=== PATIENT | female | born 1960 | race African-American/Black ===

== ENCOUNTER 2017-03-21 08:08 | Emergency (ER) | payer MEDICARE, MEDICAID ==
--- NOTE | 2017-03-21 08:42 | RADIOLOGY REPORT (SQ) ---
EXAM DESCRIPTION: CT HEAD WITHOUT COMPLETED DATE/TIME: 03/21/2017 8:28 am REASON FOR STUDY: bed 10 stroke alert COMPARISON: 06/01/2015. TECHNIQUE: Axial images acquired through the brain without intravenous contrast. Images reviewed wi th bone, brain and subdural windows. Images stored on PACS. All CT scanners at this facility use dose modulation, iterative reconstruction, and/or weight based d osing when appropriate to reduce radiation dose to as low as reasonably achievable (ALARA). [facility]: Dose Right [facility]: CareDose [facility]: Dose Right [facility]: Teradose 4D [facility]: Smart [employer] RADIATION DOSE: Up-to-date CT equipment and radiation dose reduction techniques were employed. CTDIv ol: 64.6 mGy. DLP: 1163 mGy-cm. mGy. LIMITATIONS: None. FINDINGS: VENTRICLES: Normal size and contour. CEREBRUM: No masses. No hemorrhage. No midline shift. Normal parson/white matter differentiation. N o evidence for acute infarction. CEREBELLUM: No masses. No hemorrhage. No alteration of density. No evidence for acute infarction. EXTRAAXIAL SPACES: No fluid collections. No masses. ORBITS AND GLOBE: No intra- or extraconal masses. Normal contour of globe without masses. CALVARIUM: No fracture. PARANASAL SINUSES: No fluid or mucosal thickening. SOFT TISSUES: No mass or hematoma. OTHER: No other significant finding. IMPRESSION: NORMAL BRAIN CT WITHOUT CONTRAST. COMMENT: Pertinent positive or negative findings of the imaging study reported as a CRITICAL EXAM t o ER PROVIDER at08:35 on 03/21/2017. Category of Critical Exam: Stroke protocol. TECHNICAL DOCUMENTATION: JOB ID: [id number] Quality ID # [id number]: Final reports with documentation of one or more dose reduction techniques (e.g., Au tomated exposure control, adjustment of the mA and/or kV according to patient size, use of iterative reconstruction technique) 2010 [employer]- All Rights Reserved
--- NOTE | 2017-03-21 08:49 | RADIOLOGY REPORT (SQ) ---
EXAM DESCRIPTION: CHEST SINGLE VIEW COMPLETED DATE/TIME: 03/21/2017 8:24 am REASON FOR STUDY: bed 10 stroke alert COMPARISON: 07/30/2016. EXAM PARAMETERS: NUMBER OF VIEWS: One view. TECHNIQUE: Single frontal radiographic view of the chest acquired. RADIATION DOSE: NA LIMITATIONS: None. FINDINGS: LUNGS AND PLEURA: No opacities, masses or pneumothorax. No pleural effusion. MEDIASTINUM AND HILAR STRUCTURES: No masses. Contour normal. HEART AND VASCULAR STRUCTURES: Heart normal in size. Normal vasculature. BONES: No acute findings. HARDWARE: None in the chest. OTHER: No other significant finding. IMPRESSION: NO ACUTE RADIOGRAPHIC FINDING IN THE CHEST. TECHNICAL DOCUMENTATION: JOB ID: [id number]
[2017-03-21 08:55] LABS: ABSOLUTE EOSINOPHILS # (AUTO) 0.1 10^3/uL (0.0-0.6); ABSOLUTE LYMPHOCYTES (AUTO) 0.9 10^3/uL (0.5-4.7); ABSOLUTE MONOCYTES (AUTO) 0.3 10^3/uL (0.1-1.4); ABSOLUTE NEUT (AUTO) 2.1 10^3/uL (1.7-8.2); BASOPHILS % (AUTO) 1.2 % (0-2); EOSINOPHILS % (AUTO) 2.3 % (0-6); HEMATOCRIT 39.4 % (36.0-47.0); HGB HCT DIFFERENCE -0.4; LYMPHOCYTES % (AUTO) 27.3 % (13-45); MEAN CORPUSCULAR HEMOGLOBIN 30.3 pg (27.0-33.4); MEAN CORPUSCULAR HGB CONC 33.1 g/dL (32.0-36.0); MEAN CORPUSCULAR VOLUME 92 fl (80-97); SEGMENTED NEUTROPHILS % (AUTO) 61.2 % (42-78); WHITE BLOOD COUNT 3.4 10^3/uL (4.0-10.5)
[2017-03-21 09:00] LABS: PARTIAL THROMBOPLASTIN TIME 24.9 SEC (23.5-35.8); PROTHROMBIN TIME 12.8 SEC (11.4-15.4)
[2017-03-21 09:11] LABS: ALANINE AMINOTRANSFERASE 20 U/L (9-52); ALBUMIN 3.6 g/dL (3.5-5.0); ALKALINE PHOSPHATASE 67 U/L (38-126); ANION GAP 11 (5-19); ASPARTATE AMINO TRANSFERASE 21 U/L (14-36); BILIRUBIN,DIRECT 0.3 mg/dL (0.0-0.4); BILIRUBIN,TOTAL 0.6 mg/dL (0.2-1.3); BLOOD UREA NITROGEN 15 mg/dL (7-20); CALCIUM 9.1 mg/dL (8.4-10.2); CARBON DIOXIDE 20 mmol/L (22-30); CHLORIDE 108 mmol/L (98-107); CREATINE KINASE 119 U/L (30-135); CREATININE RESULT 0.99 mg/dL (0.52-1.25); GLUCOSE 131 mg/dL (75-110); POTASSIUM 3.9 mmol/L (3.6-5.0); SODIUM 139.3 mmol/L (137-145); TOTAL PROTEIN 6.6 g/dL (6.3-8.2)
--- NOTE | 2017-03-21 09:11 | ER Document Report ---
ED General - General Chief Complaint: Numbness of Arm Stated Complaint: NUMBNESS/WEAKNESS Time Seen by Provider: 03/21/17 08:51 Mode of Arrival: Medic Information source: Patient TRAVEL OUTSIDE OF THE [place] IN LAST 30 DAYS: No - HPI Notes: Patient is a 56-year-old with history of lupus, seizures, hypertension, ITP, TTP presents to the emergency department with report that since 1 AM this morning she has had mild expressive aphasia, with right sided weakness and numbness extending from the face down to the right arm and right leg. No previous history of stroke in the past. Patient reports no shortness of breath or chest pain. No recent medication changes. - Related Data Allergies/Adverse Reactions: bee venom protein (honey bee) Allergy (Severe, Verified 03/21/17 12:44) brompheniramine maleate [From Lodrane] Allergy (Severe, Verified 07/30/16 16:28) homatropine [Homatropine] Allergy (Severe, Verified 07/30/16 16:28) hydrocodone [Hydrocodone] Allergy (Severe, Verified 07/30/16 16:28) ketorolac tromethamine [From Toradol] Allergy (Severe, Verified 07/30/16 16:28) phenytoin sodium [From Dilantin] Allergy (Severe, Verified 07/30/16 16:28) pseudoephedrine HCl [From Lodrane] Allergy (Severe, Verified 07/30/16 16:28) Sulfa (Sulfonamide Antibiotics) Allergy (Severe, Verified 07/30/16 16:28) trimethoprim [From Septra] Allergy (Severe, Verified 07/30/16 16:28) ant bites Allergy (Severe, Uncoded 07/30/16 16:28) Past Medical History - General Information source: Patient - Social History Smoking Status: Never Smoker Frequency of alcohol use: None Drug Abuse: None Lives with: Family Family History: Reviewed & Not Pertinent - Past Medical History Cardiac Medical History: Reports: Hx Hypercholesterolemia Pulmonary Medical History: Reports: Hx Asthma Neurological Medical History: Reports: Hx Seizures GI Medical History: Reports: Hx Gastroesophageal Reflux Disease Musculoskeltal Medical History: Reports Hx Arthritis - + CARPAL TUNNEL, Reports Hx Fibromyalgia Psychiatric Medical History: Reports: Hx Depression Past Surgical History: Reports: Hx Abdominal Surgery - COLON BIOPSY, Hx Breast Surgery - BIOPSY, Hx Cardiac Catheterization, Hx Gynecologic Surgery - ENDOMETRIOSIS, Hx Hysterectomy, Hx Kidney (Renal Surgery) - Immunizations Immunizations up to date: Yes Hx Diphtheria, Pertussis, Tetanus Vaccination: No - LAST 2009 Hx Pneumococcal Vaccination: 07/13/12 Review of Systems - Review of Systems Notes: REVIEW OF SYSTEMS: CONSTITUTIONAL : Denies fever, chills, or sweats. Denies recent illness. EENT: Denies eye, ear, throat, or mouth pain or symptoms. Denies nasal or sinus congestion or discharge. Denies throat, tongue, or mouth swelling or difficulty swallowing. CARDIOVASCULAR: Denies chest pain. Denies palpitations or racing or irregular heart beat. Denies ankle edema. RESPIRATORY: Denies cough, cold, or chest congestion. Denies shortness of breath, difficulty breathing, or wheezing. GASTROINTESTINAL: Denies abdominal pain or distention. Denies nausea, vomiting , or diarrhea. Denies blood in vomitus, stools, or per rectum. Denies black, tarry stools. Denies constipation. GENITOURINARY: Denies difficulty urinating, painful urination, burning, frequency, blood in urine, or discharge. FEMALE GENITOURINARY: Denies vaginal bleeding, heavy or abnormal periods, irregular periods. Denies vaginal discharge or odor. MUSCULOSKELETAL: Denies back or neck pain or stiffness. Denies joint pain or swelling. SKIN: Denies rash, lesions or sores. HEMATOLOGIC : Denies easy bruising or bleeding. LYMPHATIC: Denies swollen, enlarged glands. NEUROLOGICAL: Denies confusion or altered mental status. Denies passing out or loss of consciousness. Denies dizziness or lightheadedness. Denies headache. Denies seizures. patient reports associated difficulty ambulating. PSYCHIATRIC: Denies anxiety or stress. Denies depression, suicidal ideation, or homicidal ideation. ALL OTHER SYSTEMS REVIEWED AND NEGATIVE. Dictation was performed using [email or web address] voice recognition software Physical Exam - Vital signs Vitals: Pulse Ox 98 03/21/17 08:15 - Notes Notes: PHYSICAL EXAMINATION: GENERAL: Well-appearing, well-nourished and in no acute distress. HEAD: Atraumatic, normocephalic. EYES: Pupils equal round and reactive to light, extraocular movements intact, conjunctiva are normal. ENT: Nares patent, oropharynx clear without exudates. Moist mucous membranes. NECK: Normal range of motion, supple without lymphadenopathy LUNGS: Breath sounds clear to auscultation bilaterally and equal. No wheezes rales or rhonchi. HEART: Regular rate and rhythm without murmurs ABDOMEN: Soft, nontender, nondistended abdomen. No guarding, no rebound. No masses appreciated. Female : deferred Musculoskeletal: Normal range of motion, no pitting or edema. No cyanosis. NEUROLOGICAL: Very mild expressive aphasia noted. Patient has subjective numbness right face arm and leg. Normal reflexes noted. Motor strength 4- / 5 right upper extremity. Motor strength 4/5 RLE. Patient is alert and oriented 3. No cerebellar ataxia. PSYCH: Normal mood, normal affect. SKIN: Warm, Dry, normal turgor, no rashes or lesions noted. Course - Re-evaluation Re-evalutation: 03/21/17 13:34 CT scan negative for acute change. There were normal vital signs and lab studies showed no significant abnormality. There is no thrombocytopenia noted. No change noted on repeat neuro exam. Patient was clearly beyond in the thrombolytic window given the onset of symptoms at 1 AM. Discussion was undertaken with the patient and she was in agreement with transfer for further evaluation and care to a [facility] patient where there was availability of inpatient neurology services and evaluation and potential neurosurgical interventional services as needed. Discussion was undertaken with Dr. Holley who accepted the patient in transfer to [facility]. He advised giving the patient aspirin, and with holding heparin or other lytic therapy. Patient is unable to take aspirin related to it causing her ITP and TTP in the past. 03/21/17 13:39 - Vital Signs Vital signs: Temp Pulse Resp BP Pulse Ox 64 18 154/87 H 99 03/21/17 09:00 03/21/17 09:00 03/21/17 09:00 03/21/17 09:00 - Laboratory Result Diagrams: 03/21/17 08:45 03/21/17 08:45 Laboratory results interpreted by me: 03/21/17 03/21/17 03/21/17 08:45 08:45 10:40 WBC 3.4 L Chloride 108 H Carbon Dioxide 20 L Est GFR (Non-Af Amer) 58 L Glucose 131 H Urine Protein 100 H - EKG Interpretation by Me EKG shows normal: Sinus rhythm Additional EKG results interpreted by me: 03/21/17 09:14 EKG as interpreted by me showed normal sinus rhythm heart rate of 68. There is no gross evidence for acute VT or ischemia identified. There was no change from previous EKG reviewed in the old record from 07/30/16. Critical Care Note - Critical Care Note Total time excluding time spent on procedures (mins): 37 Discharge - Discharge Clinical Impression: CVA (cerebral vascular accident) Qualifiers: CVA mechanism: unspecified Qualified Code(s): I63.9 - Cerebral infarction, unspecified Condition: Stable Disposition: [place]
[2017-03-21 09:22] LABS: CREATINE KINASE MB 1.25 ng/mL (<4.55)
[2017-03-21 09:31] LABS: TROPONIN I < 0.012 ng/mL
[2017-03-21 10:51] LABS: APPEARANCE,URINE CLEAR; BILIRUBIN,URINE NEGATIVE (NEGATIVE); GLUCOSE, URINE NEGATIVE (NEGATIVE); KETONES,URINE NEGATIVE (NEGATIVE); LEUKOCYTE ESTERASE,URINE NEGATIVE (NEGATIVE); NITRITE,URINE NEGATIVE (NEGATIVE); PROTEIN,URINE 100 mg/dL (NEGATIVE); URINE SPECIFIC GRAVITY 1.009; UROBILINOGEN,URINE NEGATIVE mg/dL (<2.0)
[2017-03-21] MEDS ORDERED: HEPARIN SOD (PORCINE) 1,000 UNIT/ML 10 ML VIAL IV ONE (12:28)
--- NOTE | 2017-03-21 13:04 | EKG REPORT ---
SEVERITY:- NORMAL ECG - SINUS RHYTHM : Confirmed by: Donavan Vásquez MD 21-Mar-2017 13:04:24
[2017-03-21 20:02] VITALS: BP 167/90
== END 2017-03-21 19:50 | disposition short-term general hospital (02) ==
LOC: ER 08:08
DX: I63.9 Cerebral infarction, unspecified (principal); R53.1 Weakness; I10 Essential (primary) hypertension; R20.0 Anesthesia of skin
CPT/HCPCS: 36415; 70450; 71010; 80053; 81001; 82550; 82553; 84484; 85025; 85610; 85730; 93005; 93010; 99291

== ENCOUNTER 2017-05-14 17:39 | Emergency (ER) | payer MEDICARE, MEDICAID ==
--- NOTE | 2017-05-14 19:34 | RADIOLOGY REPORT (SQ) ---
EXAM DESCRIPTION: CT HEAD WITHOUT COMPLETED DATE/TIME: 05/14/2017 7:15 pm REASON FOR STUDY: right sided deficit from cva in march COMPARISON: 03/21/2017. TECHNIQUE: Axial images acquired through the brain without intravenous contrast. Images reviewed wi th bone, brain and subdural windows. Images stored on PACS. All CT scanners at this facility use dose modulation, iterative reconstruction, and/or weight based d osing when appropriate to reduce radiation dose to as low as reasonably achievable (ALARA). [facility]: Dose Right [facility]: CareDose [facility]: Dose Right [facility]: Teradose 4D [facility]: Smart [employer] RADIATION DOSE: Up-to-date CT equipment and radiation dose reduction techniques were employed. CTDIv ol: 64.6 mGy. DLP: 1163 mGy-cm. mGy. LIMITATIONS: None. FINDINGS: VENTRICLES: Normal size and contour. CEREBRUM: No masses. No hemorrhage. No midline shift. No evidence for acute infarction. Generally normal parson-white matter differentiation. When compared to the study from March, there is a new well- defined low density lacunar infarct along the left thalamus. CEREBELLUM: No masses. No hemorrhage. No alteration of density. No evidence for acute infarction. EXTRAAXIAL SPACES: No fluid collections. No masses. ORBITS AND GLOBE: No intra- or extraconal masses. Normal contour of globe without masses. CALVARIUM: No fracture. PARANASAL SINUSES: No fluid or mucosal thickening. SOFT TISSUES: No mass or hematoma. OTHER: No other significant finding. IMPRESSION: 1. New but otherwise chronic appearing small left thalamic infarct has developed since . COMMENT: Quality ID # [id number]: Final reports with documentation of one or more dose reduction techniques (e.g., Automated exposure control, adjustment of the mA and/or kV according to patient size, use of iterative reconstruction technique) TECHNICAL DOCUMENTATION: JOB ID: [id number] [employer]- All Rights Reserved
--- NOTE | 2017-05-14 19:36 | ER Document Report ---
ED General - General Chief Complaint: Weakness Stated Complaint: NUMBNESS Time Seen by Provider: 05/14/17 18:52 Mode of Arrival: Ambulatory Information source: Patient Notes: 56-year-old female who had a ischemic CVA of the left thalamus in March and was at [facility] presents with complaints of continued numbness and weakness. Patient states she was under the impression that her symptoms would have resolved by now denies any worsening weakness but admits to worsening numbness which has been gradual over the past few weeks TRAVEL OUTSIDE OF THE [place] IN LAST 30 DAYS: No - HPI Onset: Other Onset/Duration: Persistent, Worse Quality of pain: No pain Severity: Mild Pain Level: Denies Associated symptoms: Weakness Exacerbated by: Denies Relieved by: Denies Similar symptoms previously: Yes Recently seen / treated by doctor: Yes - Related Data Allergies/Adverse Reactions: bee venom protein (honey bee) Allergy (Severe, Verified 05/14/17 18:50) brompheniramine maleate [From Lodrane] Allergy (Severe, Verified 05/14/17 18:50) homatropine [Homatropine] Allergy (Severe, Verified 05/14/17 18:50) hydrocodone [Hydrocodone] Allergy (Severe, Verified 05/14/17 18:50) ketorolac tromethamine [From Toradol] Allergy (Severe, Verified 05/14/17 18:50) phenytoin sodium [From Dilantin] Allergy (Severe, Verified 05/14/17 18:50) pseudoephedrine HCl [From Lodrane] Allergy (Severe, Verified 05/14/17 18:50) Sulfa (Sulfonamide Antibiotics) Allergy (Severe, Verified 05/14/17 18:50) trimethoprim [From Septra] Allergy (Severe, Verified 05/14/17 18:50) ant bites Allergy (Severe, Uncoded 05/14/17 18:50) Past Medical History - Social History Smoking Status: Never Smoker Cigarette use (# per day): No Chew tobacco use (# tins/day): No Smoking Education Provided: No Frequency of alcohol use: None Drug Abuse: None Family History: Reviewed & Not Pertinent - Past Medical History Cardiac Medical History: Reports: Hx Hypercholesterolemia Pulmonary Medical History: Reports: Hx Asthma Neurological Medical History: Reports: Hx Seizures Renal/ Medical History: Denies: Hx Peritoneal Dialysis GI Medical History: Reports: Hx Gastroesophageal Reflux Disease Musculoskeltal Medical History: Reports Hx Arthritis - + CARPAL TUNNEL, Reports Hx Fibromyalgia Psychiatric Medical History: Reports: Hx Depression Past Surgical History: Reports: Hx Abdominal Surgery - COLON BIOPSY, Hx Breast Surgery - BIOPSY, Hx Cardiac Catheterization, Hx Gynecologic Surgery - ENDOMETRIOSIS, Hx Hysterectomy, Hx Kidney (Renal Surgery) - Immunizations Immunizations up to date: Yes Hx Diphtheria, Pertussis, Tetanus Vaccination: No - LAST 2009 Hx Pneumococcal Vaccination: 07/13/12 Review of Systems - Review of Systems Notes: REVIEW OF SYSTEMS: CONSTITUTIONAL : Denies fever, chills, or sweats. Denies recent illness. EENT: Denies eye, ear, throat, or mouth pain or symptoms. Denies nasal or sinus congestion or discharge. Denies throat, tongue, or mouth swelling or difficulty swallowing. CARDIOVASCULAR: Denies chest pain. Denies palpitations or racing or irregular heart beat. Denies ankle edema. RESPIRATORY: Denies cough, cold, or chest congestion. Denies shortness of breath, difficulty breathing, or wheezing. GASTROINTESTINAL: Denies abdominal pain or distention. Denies nausea, vomiting , or diarrhea. Denies blood in vomitus, stools, or per rectum. Denies black, tarry stools. Denies constipation. GENITOURINARY: Denies difficulty urinating, painful urination, burning, frequency, blood in urine, or discharge. FEMALE GENITOURINARY: Denies vaginal bleeding, heavy or abnormal periods, irregular periods. Denies vaginal discharge or odor. MUSCULOSKELETAL: Denies back or neck pain or stiffness. Denies joint pain or swelling. SKIN: Denies rash, lesions or sores. HEMATOLOGIC : Denies easy bruising or bleeding. LYMPHATIC: Denies swollen, enlarged glands. NEUROLOGICAL: Right-sided weakness numbness PSYCHIATRIC: Denies anxiety or stress. Denies depression, suicidal ideation, or homicidal ideation. ALL OTHER SYSTEMS REVIEWED AND NEGATIVE. PHYSICAL EXAMINATION: GENERAL: Well-appearing, well-nourished and in no acute distress. HEAD: Atraumatic, normocephalic. EYES: Pupils equal round and reactive to light, extraocular movements intact, conjunctiva are normal. ENT: Nares patent, oropharynx clear without exudates. Moist mucous membranes. NECK: Normal range of motion, supple without lymphadenopathy LUNGS: Breath sounds clear to auscultation bilaterally and equal. No wheezes rales or rhonchi. HEART: Regular rate and rhythm without murmurs ABDOMEN: Soft, nontender, nondistended abdomen. No guarding, no rebound. No masses appreciated. Female : deferred Musculoskeletal: Normal range of motion, no pitting or edema. No cyanosis. NEUROLOGICAL: Mild right sided upper extremity and lower extremity weakness compared to the left. Subjective paresthesia of the feet and hands. No facial droop, no slurred speech, alert oriented 4 PSYCH: Normal mood, normal affect. SKIN: Warm, Dry, normal turgor, no rashes or lesions noted. Dictation was performed using [employer] voice recognition software Physical Exam - Vital signs Vitals: Temp Pulse Resp BP Pulse Ox 98.4 F 77 18 154/100 H 95 05/14/17 17:55 05/14/17 17:55 05/14/17 17:55 05/14/17 17:55 05/14/17 17:55 Course - Re-evaluation Re-evalutation: 05/14/17 19:45 called [facility] regarding finding 05/14/17 19:47 Spoke grisel Wilson neurology, he notes it was a subacute left thalamic infarct which he states have a tendency to worsen, He does offer the patient to start Plavix 75mg daily if patient wishes to take it, since she decline it at that time. 05/14/17 20:44 I spoke with the patient she defers on the Plavix given her history of ITP and TTP, I can understand her concerns but I did explain to her the necessity of the Plavix given that her symptoms have worsened. Patient defers, I will therefore at the request of neurology have the patient follow-up in the office for reevaluation After performing a Medical Screening Examination, I estimate there is LOW risk for ACUTE GLAUCOMA, TEMPORAL ARTERITIS, MENINGITIS, INCRANIAL HEMORRHAGE, or ISCHEMIC STROKE thus I consider the discharge disposition reasonable. I have reevaluated this patient multiple times and no significant life threatening changes are noted. The patient and I have discussed the diagnosis and risks, and we agree with discharging home with close follow-up with the understanding that symptoms and presentations can change. We also discussed returning to the Emergency Department immediately if new or worsening symptoms occur. We have discussed the symptoms which are most concerning (e.g., changing or worsening symptoms, new numbness or weakness, vomiting, fever) that necessitate immediate return. - Vital Signs Vital signs: Temp Pulse Resp BP Pulse Ox 98.1 F 80 16 148/88 H 96 05/14/17 20:10 05/14/17 20:10 05/14/17 20:10 05/14/17 20:10 05/14/17 20:10 - Diagnostic Test Radiology reviewed: Image reviewed, Reports reviewed - Chronic left thalamus infarct reports patient Discharge - Discharge Clinical Impression: right sided residual weakness, right sided paresthesia Condition: Stable Disposition: HOME, SELF-CARE Instructions: Stroke ([facility]) Additional Instructions: Please contact your neurologist for an appointment sooner for reevaluation or return immediately if there are any other concerns or any other complaints
[2017-05-14 20:29] VITALS: BP 148/88
== END 2017-05-14 20:10 | disposition home or self-care (01) ==
LOC: ER 17:39
DX: R53.1 Weakness (principal); R20.0 Anesthesia of skin; Z86.73 Personal history of transient ischemic attack (TIA), and cerebral infarction without residual deficits
CPT/HCPCS: 70450; 99285

== ENCOUNTER 2018-01-24 13:24 | Emergency (ER) | payer MEDICARE, MEDICAID ==
--- NOTE | 2018-01-24 13:57 | ER Document Report ---
ED General <MICHOACANOYULIANA - Last Filed: 01/24/18 14:35> - General Mode of Arrival: Ambulatory Information source: Patient TRAVEL OUTSIDE OF THE [place] 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 Patient's neurologist is at [facility] (SOLO GALLO) - Related Data Allergies/Adverse Reactions: bee venom protein (honey bee) Allergy (Severe, Verified 05/14/17 18:50) brompheniramine maleate [From Lodrane] Allergy (Severe, Verified 05/14/17 18:50) homatropine [Homatropine] Allergy (Severe, Verified 05/14/17 18:50) hydrocodone [Hydrocodone] Allergy (Severe, Verified 05/14/17 18:50) ketorolac tromethamine [From Toradol] Allergy (Severe, Verified 05/14/17 18:50) phenytoin sodium [From Dilantin] Allergy (Severe, Verified 05/14/17 18:50) pseudoephedrine HCl [From Lodrane] Allergy (Severe, Verified 05/14/17 18:50) Sulfa (Sulfonamide Antibiotics) Allergy (Severe, Verified 05/14/17 18:50) trimethoprim [From Septra] Allergy (Severe, Verified 05/14/17 18:50) ant bites Allergy (Severe, Uncoded 05/14/17 18:50) Past Medical History - Social History Smoking Status: Never Smoker Cigarette use (# per day): No Chew tobacco use (# tins/day): No Smoking Education Provided: No Family History: Reviewed & Not Pertinent - Past Medical History Cardiac Medical History: Reports: Hx Hypercholesterolemia Pulmonary Medical History: Reports: Hx Asthma Neurological Medical History: Reports: Hx Seizures Renal/ Medical History: Denies: Hx Peritoneal Dialysis GI Medical History: Reports: Hx Gastroesophageal Reflux Disease Musculoskeltal Medical History: Reports Hx Arthritis - + CARPAL TUNNEL, Reports Hx Fibromyalgia Psychiatric Medical History: Reports: Hx Depression Past Surgical History: Reports: Hx Abdominal Surgery - COLON BIOPSY, Hx Breast Surgery - BIOPSY, Hx Cardiac Catheterization, Hx Gynecologic Surgery - ENDOMETRIOSIS, Hx Hysterectomy, Hx Kidney (Renal Surgery) - Immunizations Immunizations up to date: Yes Hx Diphtheria, Pertussis, Tetanus Vaccination: No - LAST 2009 Hx Pneumococcal Vaccination: 07/13/12 <SOLO GALLO - Last Filed: 01/24/18 19:29> Review of Systems <YULIANA RÍOS - Last Filed: 01/24/18 14:35> <SOLO GALLO - Last Filed: 01/24/18 19:29> - Review of Systems Notes: REVIEW OF SYSTEMS: CONSTITUTIONAL : Denies fever, chills, or sweats. Denies recent illness. EENT: Denies eye, ear, throat, or mouth pain or symptoms. Denies nasal or sinus congestion or discharge. Denies throat, tongue, or mouth swelling or difficulty swallowing. CARDIOVASCULAR: Denies chest pain. Denies palpitations or racing or irregular heart beat. Denies ankle edema. RESPIRATORY: Denies cough, cold, or chest congestion. Denies shortness of breath, difficulty breathing, or wheezing. GASTROINTESTINAL: Denies abdominal pain or distention. Denies nausea, vomiting , or diarrhea. Denies blood in vomitus, stools, or per rectum. Denies black, tarry stools. Denies constipation. GENITOURINARY: Denies difficulty urinating, painful urination, burning, frequency, blood in urine, or discharge. FEMALE GENITOURINARY: Denies vaginal bleeding, heavy or abnormal periods, irregular periods. Denies vaginal discharge or odor. MUSCULOSKELETAL: Denies back or neck pain or stiffness. Denies joint pain or swelling. SKIN: Denies rash, lesions or sores. HEMATOLOGIC : Denies easy bruising or bleeding. LYMPHATIC: Denies swollen, enlarged glands. NEUROLOGICAL: Right upper and lower extremity weakness PSYCHIATRIC: Denies anxiety or stress. Denies depression, suicidal ideation, or homicidal ideation. ALL OTHER SYSTEMS REVIEWED AND NEGATIVE. PHYSICAL EXAMINATION: GENERAL: Well-appearing, well-nourished and in no acute distress. HEAD: Atraumatic, normocephalic. EYES: Pupils equal round and reactive to light, extraocular movements intact, conjunctiva are normal. ENT: Nares patent, oropharynx clear without exudates. Moist mucous membranes. NECK: Normal range of motion, supple without lymphadenopathy LUNGS: Breath sounds clear to auscultation bilaterally and equal. No wheezes rales or rhonchi. HEART: Regular rate and rhythm without murmurs ABDOMEN: Soft, nontender, nondistended abdomen. No guarding, no rebound. No masses appreciated. Female : deferred Musculoskeletal: Mild weakness of the right upper and lower extremities noted NIH score two NEUROLOGICAL: Cranial nerves grossly intact. Normal speech, normal gait. Normal sensory, motor exams PSYCH: Normal mood, normal affect. SKIN: Warm, Dry, normal turgor, no rashes or lesions noted. Dictation was performed using [employer] voice recognition software (SOLO GALLO) - Vital signs Vitals: Pulse Ox 99 01/24/18 13:55 Course - Laboratory Result Diagrams: 01/24/18 13:50 01/24/18 13:50 <YULIANA RÍOS - Last Filed: 01/24/18 14:35> - Laboratory Result Diagrams: 01/24/18 13:50 01/24/18 13:50 - Diagnostic Test Radiology reviewed: Image reviewed - CT head without contrast notes no acute CVA , Reports reviewed <SOLO GALLO - Last Filed: 01/24/18 19:29> - Re-evaluation Re-evalutation: 01/24/18 Notified by the radiology staff for CT read on stroke alert for the patient was having an acute evolving infarct basal ganglia on the left side. I did relay this information to the attending physician on the case Ruth 01/24/18 14:35 (YULIANA RÍOS) 01/24/18 13:56 CVA noted, [facility] consulted 01/24/18 14:11 pt defered on aspirin until neuro consulted 01/24/18 14:24 Dr Candy moss request ED to ED visit Dr kelsea steel to the emergency department however is noted on the CT read and on confirmation with Dr. Hidalgo that there is no acute CVA noted, nonetheless given patient's presentation extensive history of CVA I do believe transfer is still appropriate 01/24/18 19:28 Patient is not a candidate for thrombolytics due to time of onset 01/24/18 19:28 (SOLO GALLO) - Vital Signs Vital signs: Temp Pulse Resp BP Pulse Ox 88 21 H 170/86 H 100 01/24/18 15:00 01/24/18 15:07 01/24/18 15:00 01/24/18 15:00 - Laboratory Laboratory results interpreted by me: 01/24/18 01/24/18 01/24/18 13:50 13:50 15:05 RDW 15.2 H Est GFR ( Amer) 56 L Est GFR (Non-Af Amer) 46 L Urine Protein 100 H Urine Ascorbic Acid 40 H Discharge <YULIANA RÍOS - Last Filed: 01/24/18 14:35> <SOLO GALLO - Last Filed: 01/24/18 19:29> - Discharge Clinical Impression: CVA (cerebral vascular accident) Qualifiers: CVA mechanism: unspecified Qualified Code(s): I63.9 - Cerebral infarction, unspecified Condition: Critical Disposition: [place] Referrals: SUZETTE LOVING MD [Primary Care Provider] - Follow up as needed
--- NOTE | 2018-01-24 13:58 | RADIOLOGY REPORT (SQ) ---
EXAM DESCRIPTION: CT HEAD WITHOUT COMPLETED DATE/TIME: 01/24/2018 1:42 pm REASON FOR STUDY: Increased left leg weakness COMPARISON: May 2017 TECHNIQUE: Axial images acquired through the brain without intravenous contrast. Images reviewed wi th bone, brain and subdural windows. May 2017 Images stored on PACS. All CT scanners at this facility use dose modulation, iterative reconstruction, and/or weight based d osing when appropriate to reduce radiation dose to as low as reasonably achievable (ALARA). [facility]: Dose Right [facility]: CareDose [facility]: Dose Right [facility]: Teradose 4D [facility]: [employer] RADIATION DOSE: mGy. LIMITATIONS: None. FINDINGS: VENTRICLES: Normal size and contour. CEREBRUM: No masses. No hemorrhage. No midline shift. No evidence for acute infarction. Small lac unar infarct is identified in the region the basal ganglia on the left which was present on the previ ous study. Normal parson/white matter differentiation. No areas of low density in the white matter. CEREBELLUM: No masses. No hemorrhage. No alteration of density. No evidence for acute infarction. EXTRAAXIAL SPACES: No fluid collections. No masses. ORBITS AND GLOBE: No intra- or extraconal masses. Normal contour of globe without masses. CALVARIUM: No fracture. PARANASAL SINUSES: No fluid or mucosal thickening. SOFT TISSUES: No mass or hematoma. OTHER: No other significant finding. IMPRESSION: Small lacunar infarct in the region of the basal ganglia on the left which was present o n the previous study. No other significant intracranial abnormalities were identified. Other findin gs as noted above. EVIDENCE OF ACUTE STROKE: NO. COMMENT: Pertinent positive or negative findings of the imaging study reported as a CRITICAL EXAM baldev GALLO DO at13:46 on 01/24/2018. Category of Critical Exam: Stroke alert Quality ID # [id number]: Final reports with documentation of one or more dose reduction techniques (e.g., Au tomated exposure control, adjustment of the mA and/or kV according to patient size, use of iterative reconstruction technique) TECHNICAL DOCUMENTATION: JOB ID: [id number] [employer]- All Rights Reserved Reading location - IP/workstation name: [email or web address]
--- NOTE | 2018-01-24 13:59 | RADIOLOGY REPORT (SQ) ---
EXAM DESCRIPTION: CHEST SINGLE VIEW COMPLETED DATE/TIME: 01/24/2018 1:46 pm REASON FOR STUDY: Increased left leg weakness COMPARISON: None. EXAM PARAMETERS: NUMBER OF VIEWS: One view. TECHNIQUE: Single frontal radiographic view of the chest acquired. RADIATION DOSE: NA LIMITATIONS: None. FINDINGS: LUNGS AND PLEURA: No opacities, masses or pneumothorax. No pleural effusion. MEDIASTINUM AND HILAR STRUCTURES: No masses. Contour normal. HEART AND VASCULAR STRUCTURES: Heart normal in size. Normal vasculature. BONES: No acute findings. HARDWARE: None in the chest. OTHER: No other significant finding. IMPRESSION: NO ACUTE RADIOGRAPHIC FINDING IN THE CHEST. TECHNICAL DOCUMENTATION: JOB ID: [id number] [employer]- All Rights Reserved Reading location - IP/workstation name: [email or web address]
[2018-01-24 14:06] LABS: ABSOLUTE EOSINOPHILS # (AUTO) 0.1 10^3/uL (0.0-0.6); ABSOLUTE MONOCYTES (AUTO) 0.4 10^3/uL (0.1-1.4); ABSOLUTE NEUT (AUTO) 2.2 10^3/uL (1.7-8.2); BASOPHILS % (AUTO) 0.9 % (0-2); EOSINOPHILS % (AUTO) 1.2 % (0-6); HEMATOCRIT 40.7 % (36.0-47.0); HEMOGLOBIN 13.5 g/dL (12.0-15.5); LYMPHOCYTES % (AUTO) 41.9 % (13-45); MEAN CORPUSCULAR HEMOGLOBIN 29.6 pg (27.0-33.4); MEAN CORPUSCULAR HGB CONC 33.3 g/dL (32.0-36.0); MEAN CORPUSCULAR VOLUME 89 fl (80-97); MONOCYTES % (AUTO) 8.4 % (3-13); PLATELET COUNT 306 10^3/uL (150-450); RED BLOOD COUNT 4.56 10^6/uL (3.72-5.28); RED CELL DISTRIBUTION WIDTH 15.2 % (11.5-14.0); SEGMENTED NEUTROPHILS % (AUTO) 47.6 % (42-78); TOTAL CELLS COUNTED % (AUTO) 100 %; WHITE BLOOD COUNT 4.7 10^3/uL (4.0-10.5)
[2018-01-24 14:11] LABS: PROTHROMBIN TIME 12.5 SEC (11.4-15.4)
[2018-01-24 14:12] LABS: INTERNATIONAL RATION (INR) 0.89; PARTIAL THROMBOPLASTIN TIME 28.1 SEC (23.5-35.8)
[2018-01-24 14:28] LABS: ALANINE AMINOTRANSFERASE 19 U/L (9-52); ALBUMIN 4.1 g/dL (3.5-5.0); ALKALINE PHOSPHATASE 76 U/L (38-126); ANION GAP 12 (5-19); ASPARTATE AMINO TRANSFERASE 20 U/L (14-36); BILIRUBIN,DIRECT 0.3 mg/dL (0.0-0.4); BILIRUBIN,TOTAL 0.3 mg/dL (0.2-1.3); BLOOD UREA NITROGEN 18 mg/dL (7-20); CALCIUM 9.8 mg/dL (8.4-10.2); CARBON DIOXIDE 27 mmol/L (22-30); CHLORIDE 105 mmol/L (98-107); CREATINE KINASE 74 U/L (30-135); GLUCOSE 109 mg/dL (75-110); POTASSIUM 4.2 mmol/L (3.6-5.0); TOTAL PROTEIN 7.5 g/dL (6.3-8.2)
[2018-01-24] MEDS ORDERED: ASPIRIN 325 MG TABLET PO ONE (14:29)
[2018-01-24 14:38] LABS: CREATINE KINASE MB 0.85 ng/mL (<4.55)
[2018-01-24 14:39] LABS: TROPONIN I < 0.012 ng/mL
[2018-01-24 15:34] VITALS: BP 170/86
[2018-01-24 15:48] LABS: APPEARANCE,URINE CLEAR; BILIRUBIN,URINE NEGATIVE (NEGATIVE); COLOR,URINE YELLOW; GLUCOSE, URINE NEGATIVE (NEGATIVE); KETONES,URINE NEGATIVE (NEGATIVE); LEUKOCYTE ESTERASE,URINE NEGATIVE (NEGATIVE); NITRITE,URINE NEGATIVE (NEGATIVE); PROTEIN,URINE 100 mg/dL (NEGATIVE); URINE SPECIFIC GRAVITY 1.015; UROBILINOGEN,URINE NEGATIVE mg/dL (<2.0)
--- NOTE | 2018-01-24 21:15 | EKG REPORT ---
SEVERITY:- NORMAL ECG - SINUS RHYTHM : Confirmed by: Earle Wang 24-Jan-2018 21:13:59
== END 2018-01-24 15:34 | disposition short-term general hospital (02) ==
LOC: ER 13:24
DX: I63.9 Cerebral infarction, unspecified (principal); R53.1 Weakness; R20.2 Paresthesia of skin; Z86.73 Personal history of transient ischemic attack (TIA), and cerebral infarction without residual deficits; Z79.82 Long term (current) use of aspirin; Z88.2 Allergy status to sulfonamides; E78.00 Pure hypercholesterolemia, unspecified; Z90.710 Acquired absence of both cervix and uterus
CPT/HCPCS: 93005; 99285; 36415; 82553; 82550; 85025; 85610; 85730; 80053; 81001; 84484; 71045; 70450; 93010; A9270

== ENCOUNTER 2018-05-28 18:57 | Emergency (ER) | payer MEDICARE, MEDICAID ==
--- NOTE | 2018-05-28 20:10 | ER Document Report ---
ED Medical Screen (RME) - General Chief Complaint: Arm Problem Stated Complaint: LEFT ARM BRUISING Time Seen by Provider: 05/28/18 20:06 Mode of Arrival: Ambulatory Information source: Patient Notes: 57-year-old female presents to ED for complaint of bruising to the left arm left leg and right hip. She states she has a history of ITP, TTP, fibromyalgia , lupus, seizures, vaginal herpes, depression, vertigo, and arthritis. She states he only was able to take 81 mg baby aspirin for her stroke due to her all of her diagnoses as. She states she has not hit her leg or arm on anything and she does not know why she has these big bruises. Patient is alert and oriented respirations regular and unlabored speaking in full sentences walking with a even steady gait. I have greeted and performed a rapid initial assessment of this patient. A comprehensive ED assessment and evaluation of the patient, analysis of test results and completion of medical decision making process will be conducted by an additional ED providers. TRAVEL OUTSIDE OF THE [place] IN LAST 30 DAYS: No - Related Data Allergies/Adverse Reactions: bee venom protein (honey bee) Allergy (Severe, Verified 05/14/17 18:50) brompheniramine maleate [From Lodrane] Allergy (Severe, Verified 05/14/17 18:50) homatropine [Homatropine] Allergy (Severe, Verified 05/14/17 18:50) hydrocodone [Hydrocodone] Allergy (Severe, Verified 05/14/17 18:50) ketorolac tromethamine [From Toradol] Allergy (Severe, Verified 05/14/17 18:50) phenytoin sodium [From Dilantin] Allergy (Severe, Verified 05/14/17 18:50) pseudoephedrine HCl [From Lodrane] Allergy (Severe, Verified 05/14/17 18:50) Sulfa (Sulfonamide Antibiotics) Allergy (Severe, Verified 05/14/17 18:50) trimethoprim [From Septra] Allergy (Severe, Verified 05/14/17 18:50) ant bites Allergy (Severe, Uncoded 05/14/17 18:50) Past Medical History - Past Medical History Cardiac Medical History: Reports: Hx Hypercholesterolemia Pulmonary Medical History: Reports: Hx Asthma Neurological Medical History: Reports: Hx Seizures Renal/ Medical History: Denies: Hx Peritoneal Dialysis GI Medical History: Reports: Hx Gastroesophageal Reflux Disease Musculoskeltal Medical History: Reports Hx Arthritis - + CARPAL TUNNEL, Reports Hx Fibromyalgia Psychiatric Medical History: Reports: Hx Depression Past Surgical History: Reports: Hx Abdominal Surgery - COLON BIOPSY, Hx Breast Surgery - BIOPSY, Hx Cardiac Catheterization, Hx Gynecologic Surgery - ENDOMETRIOSIS, Hx Hysterectomy, Hx Kidney (Renal Surgery) - Immunizations Immunizations up to date: Yes Hx Diphtheria, Pertussis, Tetanus Vaccination: No - LAST 2009 Physical Exam - Vital signs Vitals: Temp Pulse Resp BP Pulse Ox 99.1 F 99 16 189/99 H 95 05/28/18 19:04 05/28/18 19:04 05/28/18 19:04 05/28/18 19:04 05/28/18 19:04 Course - Vital Signs Vital signs: Temp Pulse Resp BP Pulse Ox 99.1 F 99 16 189/99 H 95 05/28/18 19:04 05/28/18 19:04 05/28/18 19:04 05/28/18 19:04 05/28/18 19:04 Doctor's Discharge - Discharge Referrals: SUZETTE LOVING MD [Primary Care Provider] - Follow up as needed
[2018-05-28 21:40] LABS: ABSOLUTE BASOPHILS # (AUTO) 0.1 10^3/uL (0.0-0.2); ABSOLUTE EOSINOPHILS # (AUTO) 0.2 10^3/uL (0.0-0.6); ABSOLUTE LYMPHOCYTES (AUTO) 1.8 10^3/uL (0.5-4.7); ABSOLUTE MONOCYTES (AUTO) 0.4 10^3/uL (0.1-1.4); ABSOLUTE NEUT (AUTO) 3.3 10^3/uL (1.7-8.2); BASOPHILS % (AUTO) 1.1 % (0-2); EOSINOPHILS % (AUTO) 2.7 % (0-6); HEMATOCRIT 39.1 % (36.0-47.0); LYMPHOCYTES % (AUTO) 30.8 % (13-45); MEAN CORPUSCULAR HEMOGLOBIN 29.8 pg (27.0-33.4); MEAN CORPUSCULAR HGB CONC 33.1 g/dL (32.0-36.0); MEAN CORPUSCULAR VOLUME 90 fl (80-97); MONOCYTES % (AUTO) 6.8 % (3-13); PLATELET COUNT 216 10^3/uL (150-450); RED BLOOD COUNT 4.35 10^6/uL (3.72-5.28); RED CELL DISTRIBUTION WIDTH 15.3 % (11.5-14.0); SEGMENTED NEUTROPHILS % (AUTO) 58.6 % (42-78); TOTAL CELLS COUNTED % (AUTO) 100 %; WHITE BLOOD COUNT 5.7 10^3/uL (4.0-10.5)
[2018-05-28 21:48] LABS: INTERNATIONAL RATION (INR) 0.89; PROTHROMBIN TIME 12.5 SEC (11.4-15.4)
[2018-05-28 22:40] LABS: ALANINE AMINOTRANSFERASE 20 U/L (9-52); ALBUMIN 3.7 g/dL (3.5-5.0); ALKALINE PHOSPHATASE 57 U/L (38-126); ANION GAP 6 (5-19); ASPARTATE AMINO TRANSFERASE 18 U/L (14-36); BILIRUBIN,DIRECT 0.4 mg/dL (0.0-0.4); BILIRUBIN,TOTAL 0.4 mg/dL (0.2-1.3); BLOOD UREA NITROGEN 18 mg/dL (7-20); CALCIUM 9.6 mg/dL (8.4-10.2); CARBON DIOXIDE 27 mmol/L (22-30); CHLORIDE 110 mmol/L (98-107); GLUCOSE 97 mg/dL (75-110); POTASSIUM 3.6 mmol/L (3.6-5.0); SODIUM 142.5 mmol/L (137-145); TOTAL PROTEIN 6.9 g/dL (6.3-8.2)
--- NOTE | 2018-05-29 00:56 | ER Document Report ---
ED General - General Chief Complaint: Arm Problem Stated Complaint: LEFT ARM BRUISING Time Seen by Provider: 05/28/18 20:06 Mode of Arrival: Ambulatory Notes: Patient is a 57-year-old female that comes emergency department for chief complaint of a bruise of her left arm, left thigh, and also over the right hip area. She states she did not notice this yesterday. She does not think that she had any injury. She reports that she has had ITP and TTP in the past. She also has had a splenectomy, she has not had ITP or TTP since the splenectomy. This was years ago. She has a history of lupus, she is on Plaquenil, daily prednisone, aspirin 81 mg. No other blood thinners. TRAVEL OUTSIDE OF THE [place] IN LAST 30 DAYS: No - Related Data Allergies/Adverse Reactions: bee venom protein (honey bee) Allergy (Severe, Verified 05/14/17 18:50) brompheniramine maleate [From Lodrane] Allergy (Severe, Verified 05/14/17 18:50) homatropine [Homatropine] Allergy (Severe, Verified 05/14/17 18:50) hydrocodone [Hydrocodone] Allergy (Severe, Verified 05/14/17 18:50) ketorolac tromethamine [From Toradol] Allergy (Severe, Verified 05/14/17 18:50) phenytoin sodium [From Dilantin] Allergy (Severe, Verified 05/14/17 18:50) pseudoephedrine HCl [From Lodrane] Allergy (Severe, Verified 05/14/17 18:50) Sulfa (Sulfonamide Antibiotics) Allergy (Severe, Verified 05/14/17 18:50) trimethoprim [From Septra] Allergy (Severe, Verified 05/14/17 18:50) ant bites Allergy (Severe, Uncoded 05/14/17 18:50) Past Medical History - General Information source: Patient - Social History Smoking Status: Never Smoker Chew tobacco use (# tins/day): No Frequency of alcohol use: None Drug Abuse: None Lives with: Family Family History: Reviewed & Not Pertinent Patient has suicidal ideation: No Patient has homicidal ideation: No - Past Medical History Cardiac Medical History: Reports: Hx Hypercholesterolemia Pulmonary Medical History: Reports: Hx Asthma Neurological Medical History: Reports: Hx Seizures Renal/ Medical History: Denies: Hx Peritoneal Dialysis GI Medical History: Reports: Hx Gastroesophageal Reflux Disease Musculoskeletal Medical History: Reports Hx Arthritis - + CARPAL TUNNEL, Reports Hx Fibromyalgia Psychiatric Medical History: Reports: Hx Depression Past Surgical History: Reports: Hx Abdominal Surgery - COLON BIOPSY, Hx Breast Surgery - BIOPSY, Hx Cardiac Catheterization, Hx Gynecologic Surgery - ENDOMETRIOSIS, Hx Hysterectomy, Hx Kidney (Renal Surgery) - Immunizations Immunizations up to date: Yes Hx Diphtheria, Pertussis, Tetanus Vaccination: No - LAST 2009 Hx Pneumococcal Vaccination: 07/13/12 Review of Systems - Review of Systems Constitutional: No symptoms reported EENT: No symptoms reported Cardiovascular: No symptoms reported Respiratory: No symptoms reported Gastrointestinal: No symptoms reported Genitourinary: No symptoms reported Female Genitourinary: No symptoms reported Musculoskeletal: No symptoms reported Skin: See HPI Hematologic/Lymphatic: No symptoms reported Neurological/Psychological: No symptoms reported Physical Exam - Vital signs Vitals: Temp Pulse Resp BP Pulse Ox 99.1 F 99 16 189/99 H 95 05/28/18 19:04 05/28/18 19:04 05/28/18 19:04 05/28/18 19:04 05/28/18 19:04 - Notes Notes: GENERAL: Alert, interacts well. No acute distress. HEAD: Normocephalic, atraumatic. EYES: Pupils equal, round, and reactive to light. Extraocular movements intact. ENT: Oral mucosa moist, tongue midline. Unremarkable oral pharyngeal exam. NECK: Full range of motion. Supple. Trachea midline. LUNGS: Clear to auscultation bilaterally, no wheezes, rales, or rhonchi. No respiratory distress. HEART: Regular rate and rhythm. No murmur ABDOMEN: Soft, non-tender. Non-distended. Bowel sounds present in all 4 quadrants. EXTREMITIES: Moves all 4 extremities spontaneously. No edema, normal radial and dorsalis pedis pulses bilaterally. No cyanosis. BACK: no cervical, thoracic, lumbar midline tenderness. No saddle anesthesia, normal distal neurovascular exam. NEUROLOGICAL: Alert and oriented x3. Normal speech. [cranial nerves II through XII grossly intact]. PSYCH: Normal affect, normal mood. SKIN: There is an area of ecchymosis over the left forearm, minimal ecchymosis over the right hip and over the left thigh, no swelling, tenderness, erythema, or other abnormality noted. Course - Re-evaluation Re-evalutation: Patient does have some ecchymosis on evaluation, physical examination otherwise unremarkable. No complaints otherwise. CBC, chemistry, PT/INR unremarkable. No thrombocytopenia. No bleeding on examination. Provided patient with a copy of her labs, discussed the labs. Patient is currently on 5 mg prednisone, aspirin, this is most likely the cause of her developed ecchymosis, this was discussed, discussed follow-up, discussed return precautions. Patient states satisfaction and agreement. Patient with asymptomatic hypertension, has close follow-up with her primary care, is already on 3 antihypertensive medications, states she has plenty of these medications and she will follow-up with her provider with this. - Vital Signs Vital signs: Temp Pulse Resp BP Pulse Ox 98.0 F 80 13 178/88 H 94 05/29/18 01:04 05/29/18 01:04 05/29/18 01:04 05/29/18 01:04 05/29/18 01:04 - Laboratory Result Diagrams: 05/28/18 21:26 05/28/18 22:15 Laboratory results interpreted by me: 05/28/18 05/28/18 21:26 22:15 RDW 15.3 H Chloride 110 H Est GFR ( Amer) 58 L Est GFR (Non-Af Amer) 48 L Discharge - Discharge Clinical Impression: Ecchymosis Condition: Stable Disposition: HOME, SELF-CARE Additional Instructions: Your labs do not show thrombocytopenia (low platelets), remaining laboratory workup does not show any concerning abnormalities. The bruising is most likely secondary to a combination of those including prednisone use, aspirin use, etc. Your medications may need to be adjusted if this continues. Take your labs to your provider for additional management and monitoring. Have your blood pressure rechecked with your primary care provider as well, it was elevated in the department tonight. Return for any concerning symptoms including abnormal bleeding, swelling, severe pain, or any other concerning or worsening symptoms. Forms: Treatment of Relative/Child Referrals: SUZETTE LOVING MD [Primary Care Provider] - Follow up as needed
[2018-05-29 01:05] VITALS: BP 178/88
== END 2018-05-29 01:05 | disposition home or self-care (01) ==
LOC: ER 18:57
DX: S40.022A Contusion of left upper arm, initial encounter (principal); S70.12XA Contusion of left thigh, initial encounter; S70.01XA Contusion of right hip, initial encounter; X58.XXXA Exposure to other specified factors, initial encounter; I10 Essential (primary) hypertension; E78.00 Pure hypercholesterolemia, unspecified; Z90.710 Acquired absence of both cervix and uterus; Z88.2 Allergy status to sulfonamides; Z88.6 Allergy status to analgesic agent; Z79.82 Long term (current) use of aspirin
CPT/HCPCS: 36415; 80053; 85025; 85610; 99283

== ENCOUNTER 2018-12-14 10:33 | Emergency (ER) | payer MEDICARE, MEDICAID ==
--- NOTE | 2018-12-14 10:55 | ER Document Report ---
ED Medical Screen (RME) - General Chief Complaint: Headache Stated Complaint: COUGH Time Seen by Provider: 12/14/18 10:47 Primary Care Provider: SUZETTE LOVING MD [Primary Care Provider] - Follow up as needed Mode of Arrival: Medic Information source: Patient Notes: Patient presents via EMS with complaints of cough, congestion, body aches and chills that have been ongoing since Tuesday. Patient denies any known fever. Patient reports she is up-to-date on her influenza and pneumonia vaccines. Patient reports nausea but denies any vomiting or diarrhea. Exam: Faint expiratory wheezes noted bilaterally, mildly increased work of breathing. Bronchospasm with deep breaths. I have greeted and performed a rapid initial assessment of this patient. A comprehensive ED assessment and evaluation of the patient, analysis of test results and completion of the medical decision making process will be conducted by additional ED providers. Dictation of this chart was performed using voice recognition software; therefore, there may be some unintended grammatical errors. TRAVEL OUTSIDE OF THE [place] IN LAST 30 DAYS: No - Related Data Allergies/Adverse Reactions: bee venom protein (honey bee) Allergy (Severe, Verified 12/14/18 10:34) brompheniramine maleate [From Lodrane] Allergy (Severe, Verified 12/14/18 10:34) homatropine [Homatropine] Allergy (Severe, Verified 12/14/18 10:34) hydrocodone [Hydrocodone] Allergy (Severe, Verified 12/14/18 10:34) ketorolac tromethamine [From Toradol] Allergy (Severe, Verified 12/14/18 10:34) phenytoin sodium [From Dilantin] Allergy (Severe, Verified 12/14/18 10:34) pseudoephedrine HCl [From Lodrane] Allergy (Severe, Verified 12/14/18 10:34) Sulfa (Sulfonamide Antibiotics) Allergy (Severe, Verified 12/14/18 10:34) trimethoprim [From Septra] Allergy (Severe, Verified 12/14/18 10:34) ant bites Allergy (Severe, Uncoded 12/14/18 10:34) Past Medical History - Past Medical History Cardiac Medical History: Reports: Hx Hypercholesterolemia Pulmonary Medical History: Reports: Hx Asthma Neurological Medical History: Reports: Hx Seizures Renal/ Medical History: Denies: Hx Peritoneal Dialysis GI Medical History: Reports: Hx Gastroesophageal Reflux Disease Musculoskeltal Medical History: Reports Hx Arthritis - + CARPAL TUNNEL, Reports Hx Fibromyalgia Psychiatric Medical History: Reports: Hx Depression Past Surgical History: Reports: Hx Abdominal Surgery - COLON BIOPSY, Hx Breast Surgery - BIOPSY, Hx Cardiac Catheterization, Hx Gynecologic Surgery - ENDOMETRIOSIS, Hx Hysterectomy, Hx Kidney (Renal Surgery) - Immunizations Immunizations up to date: Yes Hx Diphtheria, Pertussis, Tetanus Vaccination: No - LAST 2009 Physical Exam - Vital signs Vitals: Temp Pulse Resp BP Pulse Ox 100.4 F 112 H 19 132/86 H 95 12/14/18 10:42 12/14/18 10:42 12/14/18 10:42 12/14/18 10:42 12/14/18 10:42 Course - Vital Signs Vital signs: Temp Pulse Resp BP Pulse Ox 100.4 F 112 H 19 132/86 H 95 12/14/18 10:42 12/14/18 10:42 12/14/18 10:42 12/14/18 10:42 12/14/18 10:42 Doctor's Discharge - Discharge Referrals: SUZETTE LOVING MD [Primary Care Provider] - Follow up as needed
--- NOTE | 2018-12-14 11:58 | RADIOLOGY REPORT (SQ) ---
EXAM DESCRIPTION: CHEST SINGLE VIEW COMPLETED DATE/TIME: 12/14/2018 11:42 am REASON FOR STUDY: cough COMPARISON: 07/30/2016 NUMBER OF VIEWS: One view. TECHNIQUE: Single frontal radiographic view of the chest acquired. LIMITATIONS: None. FINDINGS: LUNGS AND PLEURA: No opacities, masses or pneumothorax. No pleural effusion. MEDIASTINUM AND HILAR STRUCTURES: No masses. Contour normal. HEART AND VASCULAR STRUCTURES: Heart normal in size. Normal vasculature. BONES: No acute findings. HARDWARE: None in the chest. OTHER: No other significant finding. IMPRESSION: NO SIGNIFICANT RADIOGRAPHIC FINDING IN THE CHEST. TECHNICAL DOCUMENTATION: JOB ID: [id number] [employer]- All Rights Reserved Reading location - IP/workstation name: [email or web address]
[2018-12-14 12:38] LABS: ABSOLUTE LYMPHOCYTES (AUTO) 0.8 10^3/uL (0.5-4.7); ABSOLUTE MONOCYTES (AUTO) 0.4 10^3/uL (0.1-1.4); ABSOLUTE NEUT (AUTO) 4.6 10^3/uL (1.7-8.2); BASOPHILS % (AUTO) 0.4 % (0-2); EOSINOPHILS % (AUTO) 0.2 % (0-6); HEMATOCRIT 41.3 % (36.0-47.0); HEMOGLOBIN 14.1 g/dL (12.0-15.5); LYMPHOCYTES % (AUTO) 13.2 % (13-45); MEAN CORPUSCULAR HEMOGLOBIN 30.4 pg (27.0-33.4); MEAN CORPUSCULAR VOLUME 89 fl (80-97); MONOCYTES % (AUTO) 7.6 % (3-13); PLATELET COUNT 262 10^3/uL (150-450); RED BLOOD COUNT 4.63 10^6/uL (3.72-5.28); RED CELL DISTRIBUTION WIDTH 14.4 % (11.5-14.0); SEGMENTED NEUTROPHILS % (AUTO) 78.6 % (42-78); TOTAL CELLS COUNTED % (AUTO) 100 %; WHITE BLOOD COUNT 5.9 10^3/uL (4.0-10.5)
[2018-12-14 12:55] LABS: A TYPE INFLUENZA AG NEGATIVE (NEGATIVE); B INFLUENZA AG NEGATIVE (NEGATIVE)
[2018-12-14 13:01] LABS: ALANINE AMINOTRANSFERASE 27 U/L (9-52); ALBUMIN 3.8 g/dL (3.5-5.0); ALKALINE PHOSPHATASE 63 U/L (38-126); ANION GAP 10 (5-19); ASPARTATE AMINO TRANSFERASE 20 U/L (14-36); BILIRUBIN,DIRECT 0.2 mg/dL (0.0-0.4); BILIRUBIN,TOTAL 0.4 mg/dL (0.2-1.3); BLOOD UREA NITROGEN 13 mg/dL (7-20); CARBON DIOXIDE 28 mmol/L (22-30); CHLORIDE 102 mmol/L (98-107); GLUCOSE 90 mg/dL (75-110); POTASSIUM 3.7 mmol/L (3.6-5.0); SODIUM 139.6 mmol/L (137-145); TOTAL PROTEIN 6.5 g/dL (6.3-8.2)
--- NOTE | 2018-12-14 14:14 | ER Document Report ---
ED General - General Chief Complaint: Headache Stated Complaint: COUGH Time Seen by Provider: 12/14/18 10:47 Primary Care Provider: SUZETTE LOVING MD [Primary Care Provider] - Follow up as needed Mode of Arrival: Medic Notes: 58-year-old female with lupus on prednisone and CellCept presents with headache cough shortness of breath and body aches for 2 days. Subjective fevers but nothing documented. No chest pain. No neck stiffness or photophobia. Symptoms are moderate symptoms are constant for 2 days. TRAVEL OUTSIDE OF THE [place] IN LAST 30 DAYS: No - Related Data Allergies/Adverse Reactions: bee venom protein (honey bee) Allergy (Severe, Verified 12/14/18 10:34) brompheniramine maleate [From Lodrane] Allergy (Severe, Verified 12/14/18 10:34) homatropine [Homatropine] Allergy (Severe, Verified 12/14/18 10:34) hydrocodone [Hydrocodone] Allergy (Severe, Verified 12/14/18 10:34) ketorolac tromethamine [From Toradol] Allergy (Severe, Verified 12/14/18 10:34) phenytoin sodium [From Dilantin] Allergy (Severe, Verified 12/14/18 10:34) pseudoephedrine HCl [From Lodrane] Allergy (Severe, Verified 12/14/18 10:34) Sulfa (Sulfonamide Antibiotics) Allergy (Severe, Verified 12/14/18 10:34) trimethoprim [From Septra] Allergy (Severe, Verified 12/14/18 10:34) ant bites Allergy (Severe, Uncoded 12/14/18 10:34) Past Medical History - General Information source: Patient - Social History Smoking Status: Never Smoker Chew tobacco use (# tins/day): No Frequency of alcohol use: None Drug Abuse: None Family History: Reviewed & Not Pertinent Patient has suicidal ideation: No Patient has homicidal ideation: No - Past Medical History Cardiac Medical History: Reports: Hx Hypercholesterolemia Pulmonary Medical History: Reports: Hx Asthma Neurological Medical History: Reports: Hx Seizures Renal/ Medical History: Denies: Hx Peritoneal Dialysis GI Medical History: Reports: Hx Gastroesophageal Reflux Disease Musculoskeletal Medical History: Reports Hx Arthritis - + CARPAL TUNNEL, Reports Hx Fibromyalgia Psychiatric Medical History: Reports: Hx Depression Past Surgical History: Reports: Hx Abdominal Surgery - COLON BIOPSY, Hx Breast Surgery - BIOPSY, Hx Cardiac Catheterization, Hx Gynecologic Surgery - ENDOMETRIOSIS, Hx Hysterectomy, Hx Kidney (Renal Surgery) - Immunizations Immunizations up to date: Yes Hx Diphtheria, Pertussis, Tetanus Vaccination: No - LAST 2009 Hx Pneumococcal Vaccination: 07/13/12 Review of Systems - Review of Systems Notes: REVIEW OF SYSTEMS GEN: Denies fever, chills, weight loss ENT: Denies sore throat, nasal discharge, ear pain EYES: Denies blurry vision, eye pain, discharge CV: Denies chest pain, palpitations, edema RESP: Cough shortness of breath GI: Denies abdominal pain, nausea, vomiting, diarrhea MSK: Denies joint pain/swelling, edema, SKIN: Denies rash, skin lesions LYMPH: Denies swollen glands/lymph nodes NEURO: A, denies focal weakness or numbness, dizziness PSYCH: Denies depression, suicidal or homicidal ideation PHYSICAL EXAMINATION General: No acute distress, well-nourished Head: Atraumatic, normocephalic ENT: Mouth normal, oropharynx moist, no exudates or tonsillar enlargement Eyes: Conjunctiva normal, pupils equal, lids normal Neck: No JVD, supple, no guarding CVS: Normal rate, regular rhythm, no murmurs Resp: No resp distress, equal and normal breath sounds bilaterally GI: Nondistended, soft, no tenderness to palpation, no rebound or guarding Ext: No deformities, no edema, normal range of motion in upper and lower ext Back: No CVA or midline TTP Skin: No rash, warm Lymphatic: No lymphadeopathy noted Neuro: Awake, alert. Face symmetric. GCS 15. Physical Exam - Vital signs Vitals: Temp Pulse Resp BP Pulse Ox 100.4 F 112 H 19 132/86 H 95 12/14/18 10:42 12/14/18 10:42 12/14/18 10:42 12/14/18 10:42 12/14/18 10:42 Course - Re-evaluation Re-evalutation: 12/14/18 21:17 Lupus patient immune suppressed presents with viral symptoms. Her lungs are clear saturation is normal. Chest x-ray and labs ordered at triage are negative including flu doubt pneumonia. Given her immune suppression status and the fact that she is requesting antibiotics I did give her a course of Augmentin. She was instructed to follow-up with primary care. Given the headache with a normal exam I do not think that she has meningitis. I have discussed with the patient there likely diagnosis, aftercare plan, follow-up plans and my usual and customary return precautions. They verbalized understanding of this. - Vital Signs Vital signs: Temp Pulse Resp BP Pulse Ox 98.2 F 108 H 18 151/85 H 95 12/14/18 14:20 12/14/18 14:20 12/14/18 14:20 12/14/18 14:20 12/14/18 14:20 - Laboratory Result Diagrams: 12/14/18 12:20 12/14/18 12:20 Laboratory results interpreted by me: 12/14/18 12/14/18 12:20 12:20 RDW 14.4 H Seg Neutrophils % 78.6 H Creatinine 1.29 H Est GFR ( Amer) 51 L Est GFR (Non-Af Amer) 42 L Discharge - Discharge Clinical Impression: Cough in adult Condition: Good Disposition: HOME, SELF-CARE Instructions: Viral Syndrome ([facility]) Additional Instructions: We are treating you with antibiotics just in case you are developing pneumonia because your immune system is weak from lupus. 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 Prescriptions: Benzonatate [Tessalon Perle 100 mg Capsule] 100 mg PO Q8HP PRN #40 cap PRN Reason: Amox Tr/Potassium Clavulanate [Augmentin 875-125 mg Tablet] 1 tab PO BID #14 tablet Referrals: SUZETTE LOVING MD [Primary Care Provider] - Follow up as needed
[2018-12-14 14:21] VITALS: BP 151/85
== END 2018-12-14 14:21 | disposition home or self-care (01) ==
LOC: ER 10:33
DX: R05 Cough (principal); R51 Headache; R06.02 Shortness of breath; M79.10 Myalgia, unspecified site; R50.9 Fever, unspecified; J45.909 Unspecified asthma, uncomplicated
CPT/HCPCS: 36415; 71045; 80053; 85025; 87804; 99283

== ENCOUNTER → 2019-04-11 | Outpatient (CLI) | payer MEDICARE, MEDICAID ==
[2019-04-11 14:51] LABS: APPEARANCE,URINE SLIGHTLY-CLOUDY; BILIRUBIN,URINE NEGATIVE (NEGATIVE); GLUCOSE, URINE NEGATIVE (NEGATIVE); KETONES,URINE NEGATIVE (NEGATIVE); LEUKOCYTE ESTERASE,URINE NEGATIVE (NEGATIVE); NITRITE,URINE NEGATIVE (NEGATIVE); PROTEIN,URINE 100 mg/dL (NEGATIVE); URINE SPECIFIC GRAVITY 1.017; UROBILINOGEN,URINE NEGATIVE mg/dL (<2.0)
[2019-04-11 14:56] LABS: COLOR,URINE YELLOW
== END ==
LOC: LAB 14:28
DX: N39.0 Urinary tract infection, site not specified (principal)
CPT/HCPCS: 81001; 87086

== ENCOUNTER 2019-05-11 12:12 | Emergency (ER) | payer MEDICARE, MEDICAID ==
--- NOTE | 2019-05-11 13:51 | ER Document Report ---
ED Medical Screen (RME) - General Chief Complaint: Rectal Bleeding Stated Complaint: SORE THROAT Time Seen by Provider: 05/11/19 13:40 Primary Care Provider: SUZETTE LOVING MD [Primary Care Provider] - Follow up as needed Mode of Arrival: Wheelchair Notes: Patient presents complaining of swollen lymph nodes as well as voice hoarseness for the past 2 days. Patient also reports blood in her stool and would like to be evaluated for all of these things here today. Patient denies any abdominal tenderness. Patient does report a history significant for lupus hypertension seizures and CVA. I have greeted and performed a rapid initial assessment of this patient. A comprehensive ED assessment and evaluation of the patient, analysis of test results and completion of the medical decision making process will be conducted by additional ED providers. TRAVEL OUTSIDE OF THE [place] IN LAST 30 DAYS: No - Related Data Allergies/Adverse Reactions: bee venom protein (honey bee) Allergy (Severe, Verified 05/11/19 12:21) brompheniramine maleate [From Lodrane] Allergy (Severe, Verified 05/11/19 12:21) homatropine [Homatropine] Allergy (Severe, Verified 05/11/19 12:21) hydrocodone [Hydrocodone] Allergy (Severe, Verified 05/11/19 12:21) ketorolac tromethamine [From Toradol] Allergy (Severe, Verified 05/11/19 12:21) phenytoin sodium [From Dilantin] Allergy (Severe, Verified 05/11/19 12:21) pseudoephedrine HCl [From Lodrane] Allergy (Severe, Verified 05/11/19 12:21) Sulfa (Sulfonamide Antibiotics) Allergy (Severe, Verified 05/11/19 12:21) trimethoprim [From Septra] Allergy (Severe, Verified 05/11/19 12:21) ant bites Allergy (Severe, Uncoded 05/11/19 12:21) Past Medical History - Past Medical History Cardiac Medical History: Reports: Hx Hypercholesterolemia Pulmonary Medical History: Reports: Hx Asthma Neurological Medical History: Reports: Hx Seizures Renal/ Medical History: Denies: Hx Peritoneal Dialysis GI Medical History: Reports: Hx Gastroesophageal Reflux Disease Musculoskeltal Medical History: Reports Hx Arthritis - + CARPAL TUNNEL, Reports Hx Fibromyalgia Psychiatric Medical History: Reports: Hx Depression Past Surgical History: Reports: Hx Abdominal Surgery - COLON BIOPSY, Hx Breast Surgery - BIOPSY, Hx Cardiac Catheterization, Hx Gynecologic Surgery - ENDOMETRIOSIS, Hx Hysterectomy, Hx Kidney (Renal Surgery) - Immunizations Immunizations up to date: Yes Hx Diphtheria, Pertussis, Tetanus Vaccination: No - LAST 2009 Physical Exam - Vital signs Vitals: Temp Pulse Resp BP Pulse Ox 98.0 F 84 18 131/63 H 96 05/11/19 12:22 05/11/19 12:22 05/11/19 12:22 05/11/19 12:22 05/11/19 12:22 - General Notes: Voice hoarseness, patient able to manage oral secretions Course - Vital Signs Vital signs: Temp Pulse Resp BP Pulse Ox 98.0 F 84 18 131/63 H 96 05/11/19 12:22 05/11/19 12:22 05/11/19 12:22 05/11/19 12:22 05/11/19 12:22 Doctor's Discharge - Discharge Referrals: SUZETTE LOVING MD [Primary Care Provider] - Follow up as needed
--- NOTE | 2019-05-11 14:23 | ER Document Report ---
ED General - General Chief Complaint: Rectal Bleeding Stated Complaint: SORE THROAT Time Seen by Provider: 05/11/19 13:40 Primary Care Provider: SUZETTE LOVING MD [Primary Care Provider] - Follow up as needed Mode of Arrival: Wheelchair TRAVEL OUTSIDE OF THE [place] IN LAST 30 DAYS: No - HPI Notes: Patient is a 58-year-old female with a history of lupus, fibromyalgia, CVA, seizures who presents with a primary concern of voice hoarseness x2 days. Olivia trevino has been able to eat and drink without difficulty otherwise. She is urinating normally. She has not had any recent illness otherwise. Patient states that on occasion she will have red blood when she wipes and a little bit in the toilet every now and again which is not uncommon for her due to her hemorrhoids. Patient states that last time she saw any blood was yesterday. She has not had any other melena. No associated pain or discomfort. Last colonoscopy was 8 years ago. She is otherwise feeling well and is here for her hoarseness. Denies any headache, fever, neck pain, URI, sore throat, chest pain, palpitations, syncope, cough, shortness of breath, wheeze, dyspnea, abdominal pain, nausea/vomiting/diarrhea, urinary retention, dysuria, hematuria, or rash. - Related Data Allergies/Adverse Reactions: bee venom protein (honey bee) Allergy (Severe, Verified 05/11/19 12:21) brompheniramine maleate [From Lodrane] Allergy (Severe, Verified 05/11/19 12:21) homatropine [Homatropine] Allergy (Severe, Verified 05/11/19 12:21) hydrocodone [Hydrocodone] Allergy (Severe, Verified 05/11/19 12:21) ketorolac tromethamine [From Toradol] Allergy (Severe, Verified 05/11/19 12:21) phenytoin sodium [From Dilantin] Allergy (Severe, Verified 05/11/19 12:21) pseudoephedrine HCl [From Lodrane] Allergy (Severe, Verified 05/11/19 12:21) Sulfa (Sulfonamide Antibiotics) Allergy (Severe, Verified 05/11/19 12:21) trimethoprim [From Septra] Allergy (Severe, Verified 05/11/19 12:21) ant bites Allergy (Severe, Uncoded 05/11/19 12:21) Past Medical History - Social History Smoking Status: Unknown if Ever Smoked Family History: Reviewed & Not Pertinent Patient has suicidal ideation: No Patient has homicidal ideation: No - Past Medical History Cardiac Medical History: Reports: Hx Hypercholesterolemia Pulmonary Medical History: Reports: Hx Asthma Neurological Medical History: Reports: Hx Seizures Renal/ Medical History: Denies: Hx Peritoneal Dialysis GI Medical History: Reports: Hx Gastroesophageal Reflux Disease Musculoskeletal Medical History: Reports Hx Arthritis - + CARPAL TUNNEL, Reports Hx Fibromyalgia Psychiatric Medical History: Reports: Hx Depression Past Surgical History: Reports: Hx Abdominal Surgery - COLON BIOPSY, Hx Breast Surgery - BIOPSY, Hx Cardiac Catheterization, Hx Gynecologic Surgery - ENDOMETRIOSIS, Hx Hysterectomy, Hx Kidney (Renal Surgery) - Immunizations Immunizations up to date: Yes Hx Diphtheria, Pertussis, Tetanus Vaccination: No - LAST 2009 Hx Pneumococcal Vaccination: 07/13/12 Review of Systems - Review of Systems -: Yes All other systems reviewed and negative Physical Exam - Vital signs Vitals: Temp Pulse Resp BP Pulse Ox 98.0 F 84 18 131/63 H 96 05/11/19 12:22 05/11/19 12:22 05/11/19 12:22 05/11/19 12:22 05/11/19 12:22 - Notes Notes: PHYSICAL EXAMINATION: GENERAL: Well-appearing, well-nourished and in no acute distress. A&Ox4. Ans wers questions appropriately. Moves comfortably w/o notable distress HEAD: Atraumatic, normocephalic. EYES: Pupils equal round and reactive to light, extraocular movements intact, sclera anicteric, conjunctiva are normal. ENT: EAC clear b/l. TM's intact b/l without erythema, fluid, or perforation. Nares patent and with clear discharge. oropharynx no erythema without exudates. No tonsilar hypertrophy without erythema or exudate. No palatine shift. Uvula midline. No tongue protrusion. No drooling, hoarseness, or airway compromise. Moist mucous membranes. No sinus tenderness. NECK: Normal range of motion, supple without lymphadenopathy. No rigidity/meningismus. LUNGS: Breath sounds clear to auscultation bilaterally and equal. No wheezes rales or rhonchi. No retractions HEART: Regular rate and rhythm without murmurs, rubs, gallops. ABDOMEN: Soft, nontender, nondistended abdomen. No guarding, no rebound. Normal bowel sounds present. No CVA tenderness bilaterally. Hartman negative. No tenderness at [place]. NEUROLOGICAL: Normal speech, normal gait. PSYCH: Normal mood, normal affect. SKIN: Warm, Dry, normal turgor, no rashes or lesions noted. Course - Re-evaluation Re-evalutation: 05/11/19 15:25 Patient is an afebrile, well-hydrated, 58-year-old female who presents with acute laryngitis, suspect viral. Vitals are acceptable without significant tachycardia, tachypnea, or hypoxia. PE is otherwise unremarkable. Patient is nontoxic-appearing and is tolerating p.o. without difficulty. Abdomen is soft nontender. CBC, coags, CMP unremarkable. No further work-up warranted at this time. I did review with patient that she needs to f/u with PCM/GI for the blood primarily when she wipes, but only happened once yesterday and has been intermittent historically w. h/o hemorrhoids. No associated pain or discomfort. Patient states that she is not really worried about this at this time. Declined rectal exam. Low suspicion/risk for peritonsillar/pharyngeal abscess, pneumonia, acute appendicitis, bowel obstruction, acute cholecystitis, acute cholangitis, perforated diverticulitis, incarcerated hernia, pancreatitis, perforated ulcer, peritonitis, sepsis, pelvic inflammatory disease, ectopic , tubo-ovarian abscess, ovarian torsion, or other systemic emergent condition at this time. Patient is aware that her condition can change from initial presentation and she needs to monitor symptoms closely and seek medical attention if any acute changes. Conservative measures otherwise for symptoms. Recheck with your PCM in 2-3 days. 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 Return to the ED with any worsening/concerning symptoms otherwise as reviewed in discharge. Patient is in agreement. - Vital Signs Vital signs: Temp Pulse Resp BP Pulse Ox 98.0 F 84 18 131/63 H 96 05/11/19 12:22 05/11/19 12:22 05/11/19 12:22 05/11/19 12:22 05/11/19 12:22 - Laboratory Result Diagrams: 05/11/19 14:40 05/11/19 14:40 Laboratory results interpreted by me: 05/11/19 05/11/19 14:40 14:40 WBC 3.8 L BUN 22 H Est GFR ( Amer) 55 L Est GFR (MDRD) Non-Af 45 L Calcium 10.5 H Discharge - Discharge Clinical Impression: Laryngitis Condition: Stable Disposition: HOME, SELF-CARE Instructions: Laryngitis ([facility]) Additional Instructions: Maintain adequate fluid intake Take meds as directed Salt water gargles, throat sprays, mouthwash rinse, peroxide gargles tylenol/ibuprofen as needed over the counter cold medication as needed for symptoms F/u: with your PCM in 2-3 days for a recheck Schedule consult with gastroenterology for further evaluation and management as you may need another colonoscopy. Return to the ED with any fever, worsening pain, chest pain, neck pain/stiffness, shortness of breath, cough, drooling, trouble swallowing/tom athing, abdominal pain, n/v/d, rash, or worsening/concerning symptoms otherwise. Forms: Elevated Blood Pressure Referrals: MUSA MIKE MD [ACTIVE STAFF] - Follow up as needed FRANCIA ROONEY MD [ACTIVE STAFF] - Follow up as needed SUZETTE LOVING MD [Primary Care Provider] - 05/14/19
[2019-05-11 14:55] LABS: ABSOLUTE LYMPHOCYTES (AUTO) 1.1 10^3/uL (0.5-4.7); ABSOLUTE MONOCYTES (AUTO) 0.2 10^3/uL (0.1-1.4); ABSOLUTE NEUT (AUTO) 2.4 10^3/uL (1.7-8.2); BASOPHILS % (AUTO) 0.8 % (0-2); EOSINOPHILS % (AUTO) 0.8 % (0-6); HEMATOCRIT 38.5 % (36.0-47.0); HEMOGLOBIN 12.8 g/dL (12.0-15.5); LYMPHOCYTES % (AUTO) 28.1 % (13-45); MEAN CORPUSCULAR HEMOGLOBIN 30.9 pg (27.0-33.4); MEAN CORPUSCULAR HGB CONC 33.4 g/dL (32.0-36.0); MEAN CORPUSCULAR VOLUME 93 fl (80-97); MONOCYTES % (AUTO) 6.2 % (3-13); PLATELET COUNT 219 10^3/uL (150-450); RED BLOOD COUNT 4.15 10^6/uL (3.72-5.28); RED CELL DISTRIBUTION WIDTH 13.9 % (11.5-14.0); SEGMENTED NEUTROPHILS % (AUTO) 64.1 % (42-78); TOTAL CELLS COUNTED % (AUTO) 100 %; WHITE BLOOD COUNT 3.8 10^3/uL (4.0-10.5)
[2019-05-11 15:02] LABS: INTERNATIONAL RATION (INR) 0.96; PROTHROMBIN TIME 12.8 SEC (11.4-15.4)
[2019-05-11 15:03] LABS: PARTIAL THROMBOPLASTIN TIME 27.6 SEC (23.5-35.8)
[2019-05-11 15:15] LABS: ALBUMIN 4.1 g/dL (3.5-5.0); ALKALINE PHOSPHATASE 53 U/L (38-126); ANION GAP 7 (5-19); ASPARTATE AMINO TRANSFERASE 23 U/L (14-36); BILIRUBIN,DIRECT 0.3 mg/dL (0.0-0.4); BILIRUBIN,TOTAL 0.5 mg/dL (0.2-1.3); BLOOD UREA NITROGEN 22 mg/dL (7-20); CALCIUM 10.5 mg/dL (8.4-10.2); CARBON DIOXIDE 29 mmol/L (22-30); CHLORIDE 104 mmol/L (98-107); GLUCOSE 104 mg/dL (75-110)
[2019-05-11] MEDS ORDERED: METHYLPREDNISOLONE INJ 125 MG/2 ML SDV IM ONE (15:25)
[2019-05-11 15:48] VITALS: BP 152/95
== END 2019-05-11 15:48 | disposition home or self-care (01) ==
LOC: ER 12:12
DX: R49.0 Dysphonia (principal); J04.0 Acute laryngitis; E78.00 Pure hypercholesterolemia, unspecified; Z90.710 Acquired absence of both cervix and uterus; Z88.2 Allergy status to sulfonamides
CPT/HCPCS: 99283; 96374; 36415; 85025; 85610; 85730; 80053; J2930

== ENCOUNTER 2019-05-29 16:33 | Observation (INO) | payer MEDICARE, MEDICAID ==
--- NOTE | 2019-05-29 17:11 | ER Document Report ---
ED Medical Screen (RME) - General Chief Complaint: Chest Pain Stated Complaint: CHEST PAIN Time Seen by Provider: 05/29/19 16:56 Primary Care Provider: SUZETTE LOVING MD [Primary Care Provider] - Follow up as needed Mode of Arrival: Wheelchair Information source: Patient Notes: This 58-year-old female with history of lupus, cardiac disease stroke ITP TTP presents to the emergency department with chest pain for the last couple days. Reports she is taken at least 3 nitro glycerin's without relief of symptoms. She reports her doctor in [place] told her if she has to take that many nitro she needs to come the emergency department. She reports that she has had a stroke couple years ago with right side residual. She states at 1500 she was unable to talk and had the heaviness in her chest. She reports she vomited 2 days ago. 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 EKG shows sinus rhythm. I have greeted and performed a rapid initial assessment of this patient. A comprehensive ED assessment and evaluation of the patient, analysis of test results and completion of the medical decision making process will be conducted by additional ED providers. Dictation of this chart was performed using voice recognition software; therefore, there may be some unintended grammatical errors. TRAVEL OUTSIDE OF THE [place] IN LAST 30 DAYS: No - Related Data Allergies/Adverse Reactions: bee venom protein (honey bee) Allergy (Severe, Verified 05/29/19 16:43) brompheniramine maleate [From Lodrane] Allergy (Severe, Verified 05/29/19 16:43) homatropine [Homatropine] Allergy (Severe, Verified 05/29/19 16:43) hydrocodone [Hydrocodone] Allergy (Severe, Verified 05/29/19 16:43) ketorolac tromethamine [From Toradol] Allergy (Severe, Verified 05/29/19 16:43) phenytoin sodium [From Dilantin] Allergy (Severe, Verified 05/29/19 16:43) pseudoephedrine HCl [From Lodrane] Allergy (Severe, Verified 05/29/19 16:43) Sulfa (Sulfonamide Antibiotics) Allergy (Severe, Verified 05/29/19 16:43) trimethoprim [From Septra] Allergy (Severe, Verified 05/29/19 16:43) ant bites Allergy (Severe, Uncoded 05/29/19 16:43) Past Medical History - Past Medical History Cardiac Medical History: Reports: Hx Hypercholesterolemia Pulmonary Medical History: Reports: Hx Asthma Neurological Medical History: Reports: Hx Seizures Renal/ Medical History: Denies: Hx Peritoneal Dialysis GI Medical History: Reports: Hx Gastroesophageal Reflux Disease Musculoskeltal Medical History: Reports Hx Arthritis - + CARPAL TUNNEL, Reports Hx Fibromyalgia Psychiatric Medical History: Reports: Hx Depression Past Surgical History: Reports: Hx Abdominal Surgery - COLON BIOPSY, Hx Breast Surgery - BIOPSY, Hx Cardiac Catheterization, Hx Gynecologic Surgery - ENDOMETRIOSIS, Hx Hysterectomy, Hx Kidney (Renal Surgery) - Immunizations Immunizations up to date: Yes Hx Diphtheria, Pertussis, Tetanus Vaccination: No - LAST 2009 Physical Exam - Vital signs Vitals: Temp Pulse Resp BP Pulse Ox 98.2 F 89 18 138/71 H 95 05/29/19 16:54 05/29/19 16:54 05/29/19 16:54 05/29/19 16:54 05/29/19 16:54 Course - Vital Signs Vital signs: Temp Pulse Resp BP Pulse Ox 98.2 F 89 18 138/71 H 95 05/29/19 16:54 05/29/19 16:54 05/29/19 16:54 05/29/19 16:54 05/29/19 16:54 Doctor's Discharge - Discharge Referrals: SUZETTE LOVING MD [Primary Care Provider] - Follow up as needed
--- NOTE | 2019-05-29 17:35 | ER Document Report ---
ED General - General Chief Complaint: Chest Pain Stated Complaint: CHEST PAIN Time Seen by Provider: 05/29/19 16:56 Primary Care Provider: SUZETTE LOVING MD [Primary Care Provider] - Follow up as needed Mode of Arrival: Wheelchair TRAVEL OUTSIDE OF THE [place] 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 She continues to have mild tingling as well as chest pressure in the emergency department. She denies any history of heart attack her last stress test was several years ago. She is not having any new motor or sensory deficits at this time other than mild tingling movements occurring only in her upper shoulder. No vision changes. She has not had any recent cough congestion fevers or illnesses. - Related Data Allergies/Adverse Reactions: bee venom protein (honey bee) Allergy (Severe, Verified 05/29/19 16:43) brompheniramine maleate [From Lodrane] Allergy (Severe, Verified 05/29/19 16:43) homatropine [Homatropine] Allergy (Severe, Verified 05/29/19 16:43) hydrocodone [Hydrocodone] Allergy (Severe, Verified 05/29/19 16:43) ketorolac tromethamine [From Toradol] Allergy (Severe, Verified 05/29/19 16:43) phenytoin sodium [From Dilantin] Allergy (Severe, Verified 05/29/19 16:43) pseudoephedrine HCl [From Lodrane] Allergy (Severe, Verified 05/29/19 16:43) Sulfa (Sulfonamide Antibiotics) Allergy (Severe, Verified 05/29/19 16:43) trimethoprim [From Septra] Allergy (Severe, Verified 05/29/19 16:43) ant bites Allergy (Severe, Uncoded 05/29/19 16:43) Past Medical History - General Information source: Patient - Social History Smoking Status: Unknown if Ever Smoked Family History: Reviewed & Not Pertinent Patient has suicidal ideation: No Patient has homicidal ideation: No - Past Medical History Cardiac Medical History: Reports: Hx Hypercholesterolemia Pulmonary Medical History: Reports: Hx Asthma Neurological Medical History: Reports: Hx Seizures Renal/ Medical History: Denies: Hx Peritoneal Dialysis GI Medical History: Reports: Hx Gastroesophageal Reflux Disease Musculoskeletal Medical History: Reports Hx Arthritis - + CARPAL TUNNEL, Reports Hx Fibromyalgia Psychiatric Medical History: Reports: Hx Depression Past Surgical History: Reports: Hx Abdominal Surgery - COLON BIOPSY, Hx Breast Surgery - BIOPSY, Hx Cardiac Catheterization, Hx Gynecologic Surgery - EN DOMETRIOSIS, Hx Hysterectomy, Hx Kidney (Renal Surgery) - Immunizations Immunizations up to date: Yes Hx Diphtheria, Pertussis, Tetanus Vaccination: No - LAST 2009 Hx Pneumococcal Vaccination: 07/13/12 Review of Systems - Review of Systems Constitutional: No symptoms reported EENT: No symptoms reported Cardiovascular: See HPI Respiratory: No symptoms reported Gastrointestinal: No symptoms reported Genitourinary: No symptoms reported Female Genitourinary: No symptoms reported Musculoskeletal: No symptoms reported Skin: No symptoms reported Hematologic/Lymphatic: No symptoms reported Neurological/Psychological: No symptoms reported Physical Exam - Vital signs Vitals: Temp Pulse Resp BP Pulse Ox 98.2 F 89 18 138/71 H 95 05/29/19 16:54 05/29/19 16:54 05/29/19 16:54 05/29/19 16:54 05/29/19 16:54 - General General appearance: Appears well, Alert - HEENT Head: Normocephalic, Atraumatic Eyes: Normal Conjunctiva: Normal Cornea: Normal Extraocular movements intact: Yes Pupils: PERRL - Respiratory Respiratory status: No respiratory distress Chest status: Nontender Breath sounds: Normal Chest palpation: Normal - Cardiovascular Rhythm: Regular Heart sounds: Normal auscultation Murmur: Yes - Abdominal Inspection: Normal Distension: No distension Bowel sounds: Normal Tenderness: Nontender - Neurological Neuro grossly intact: Yes Cognition: Normal Orientation: AAOx4 Speech: Normal Cranial nerves: Normal Cerebellar coordination: Normal, Other - Walking with a cane in the emergency department at patient's baseline Course - Re-evaluation Re-evalutation: 05/29/19 17:33 Patient been having chest pressure since 1230 with tingling in her upper s [place]oulder with no other sensory or motor deficits. She had a brief encounter she initially felt the chest pressure she also felt tightness in her throat and felt she could not speak momentarily but this has not occurred since the initial time. She does admit to being scared when she felt the pressure and this sounds like more of a severe reaction and not consistent with strokelike symptoms. However, CT head was ordered by triage nurse. Chest pain work-up in progress. 05/29/19 17:35 05/29/19 17:43 05/29/19 19:23 Initial work-up negative high risk heart score will be admitted for further anderson st pain rule out. She is noted to have a UTI and ceftriaxone provided in the emergency department. - Vital Signs Vital signs: Temp Pulse Resp BP Pulse Ox 98.2 F 89 19 120/79 98 05/29/19 16:54 05/29/19 18:05 05/29/19 19:01 05/29/19 19:00 05/29/19 19:01 - Laboratory Result Diagrams: 05/29/19 18:00 05/29/19 18:00 Laboratory results interpreted by me: 05/29/19 05/29/19 17:54 18:00 BUN 38 H Creatinine 2.05 H Est GFR ( Amer) 30 L Est GFR (MDRD) Non-Af 25 L Urine Protein 100 H Urine Blood SMALL H Urine Nitrite POSITIVE H Ur Leukocyte Esterase LARGE H Discharge - Discharge Clinical Impression: Chest pain Qualifiers: Chest pain type: unspecified Qualified Code(s): R07.9 - Chest pain, unspecified Urinary tract infection Qualifiers: Urinary tract infection type: acute cystitis Hematuria presence: with hematuria Qualified Code(s): N30.01 - Acute cystitis with hematuria Condition: Good Disposition: ADMITTED OBSERVATION Admitting Provider: Vinny (Hospitalist) Unit Admitted: Telemetry Referrals: SUZETTE LOVING MD [Primary Care Provider] - Follow up as needed
--- NOTE | 2019-05-29 17:36 | RADIOLOGY REPORT (SQ) ---
EXAM DESCRIPTION: CT HEAD WITHOUT COMPLETED DATE/TIME: 05/29/2019 5:27 pm REASON FOR STUDY: hx stroke reports unable to talk at 1500 COMPARISON: 01/24/2018 TECHNIQUE: Axial images acquired through the brain without intravenous contrast. Images reviewed wi th bone, brain and subdural windows. Images stored on PACS. All CT scanners at this facility use dose modulation, iterative reconstruction, and/or weight based d osing when appropriate to reduce radiation dose to as low as reasonably achievable (ALARA). [facility]: Dose Right [facility]: CareDose [facility]: Dose Right [facility]: Teradose 4D [facility]: Smart SocialShield RADIATION DOSE: CT Rad equipment meets quality standard of care and radiation dose reduction techniq ues were employed. CTDIvol: 53.2 mGy. DLP: 1044 mGy-cm. mGy. LIMITATIONS: None. FINDINGS: VENTRICLES: Prominent. CEREBRUM: No masses. No hemorrhage. No midline shift. Old lacunar infarct left thalamus. Areas of low density in the white matter most likely due to chronic micro-vascular ischemic change. No evide nce for acute infarction. CEREBELLUM: No masses. No hemorrhage. No alteration of density. No evidence for acute infarction. EXTRAAXIAL SPACES: Mild age-related involutional change. No fluid collections. No masses. ORBITS AND GLOBE: No intra- or extraconal masses. Normal contour of globe without masses. CALVARIUM: No fracture. PARANASAL SINUSES: No fluid or mucosal thickening. SOFT TISSUES: No mass or hematoma. OTHER: No other significant finding. IMPRESSION: MILD CHRONIC CHANGES OF ATROPHY AND MICROVASCULAR ISCHEMIA. NO ACUTE PROCESS. EVIDENCE OF ACUTE STROKE: NO. TECHNICAL DOCUMENTATION: JOB ID: [id number] Quality ID # [id number]: Final reports with documentation of one or more dose reduction techniques (e.g., Au tomated exposure control, adjustment of the mA and/or kV according to patient size, use of iterative reconstruction technique) 2010 [employer]- All Rights Reserved Reading location - IP/workstation name: [email or web address]
--- NOTE | 2019-05-29 17:40 | RADIOLOGY REPORT (SQ) ---
EXAM DESCRIPTION: CHEST 2 VIEWS COMPLETED DATE/TIME: 05/29/2019 5:18 pm REASON FOR STUDY: cp COMPARISON: None. EXAM PARAMETERS: NUMBER OF VIEWS: two views TECHNIQUE: Digital Frontal and Lateral radiographic views of the chest acquired. RADIATION DOSE: NA LIMITATIONS: none FINDINGS: LUNGS AND PLEURA: No opacities, masses or pneumothorax. No pleural effusion. MEDIASTINUM AND HILAR STRUCTURES: No masses or contour abnormalities. HEART AND VASCULAR STRUCTURES: Heart normal size. No evidence for failure. BONES: No acute findings. HARDWARE: None in the chest. OTHER: No other significant finding. IMPRESSION: NO ACUTE RADIOGRAPHIC FINDING IN THE CHEST. TECHNICAL DOCUMENTATION: JOB ID: [id number] [employer]- All Rights Reserved Reading location - IP/workstation name: [email or web address]
[2019-05-29 18:15] LABS: APPEARANCE,URINE CLOUDY; BILIRUBIN,URINE NEGATIVE (NEGATIVE); GLUCOSE, URINE NEGATIVE (NEGATIVE); KETONES,URINE NEGATIVE (NEGATIVE); LEUKOCYTE ESTERASE,URINE LARGE (NEGATIVE); NITRITE,URINE POSITIVE (NEGATIVE); PROTEIN,URINE 100 mg/dL (NEGATIVE); URINE SPECIFIC GRAVITY 1.017; UROBILINOGEN,URINE NEGATIVE mg/dL (<2.0)
[2019-05-29 18:17] LABS: ABSOLUTE LYMPHOCYTES (AUTO) 1.5 10^3/uL (0.5-4.7); ABSOLUTE MONOCYTES (AUTO) 0.5 10^3/uL (0.1-1.4); ABSOLUTE NEUT (AUTO) 4.2 10^3/uL (1.7-8.2); BASOPHILS % (AUTO) 0.5 % (0-2); EOSINOPHILS % (AUTO) 0.3 % (0-6); HEMATOCRIT 36.9 % (36.0-47.0); HEMOGLOBIN 12.5 g/dL (12.0-15.5); LYMPHOCYTES % (AUTO) 23.3 % (13-45); MEAN CORPUSCULAR HEMOGLOBIN 31.1 pg (27.0-33.4); MEAN CORPUSCULAR VOLUME 92 fl (80-97); MONOCYTES % (AUTO) 8.4 % (3-13); PLATELET COUNT 206 10^3/uL (150-450); RED BLOOD COUNT 4.02 10^6/uL (3.72-5.28); SEGMENTED NEUTROPHILS % (AUTO) 67.5 % (42-78); TOTAL CELLS COUNTED % (AUTO) 100 %; WHITE BLOOD COUNT 6.3 10^3/uL (4.0-10.5)
[2019-05-29 18:18] LABS: COLOR,URINE DARK YELLOW
[2019-05-29 18:19] LABS: INTERNATIONAL RATION (INR) 1.02
[2019-05-29 18:23] LABS: PROTHROMBIN TIME 13.4 SEC (11.4-15.4)
[2019-05-29 18:37] LABS: ALKALINE PHOSPHATASE 62 U/L (38-126); ANION GAP 10 (5-19); ASPARTATE AMINO TRANSFERASE 27 U/L (14-36); BILIRUBIN,DIRECT 0.1 mg/dL (0.0-0.4); BILIRUBIN,TOTAL 0.4 mg/dL (0.2-1.3); BLOOD UREA NITROGEN 38 mg/dL (7-20); CARBON DIOXIDE 25 mmol/L (22-30); CHLORIDE 107 mmol/L (98-107); GLUCOSE 94 mg/dL (75-110); POTASSIUM 4.7 mmol/L (3.6-5.0); TOTAL PROTEIN 6.6 g/dL (6.3-8.2)
--- NOTE | 2019-05-29 18:39 | EKG REPORT ---
SEVERITY:- NORMAL ECG - SINUS RHYTHM : Confirmed by: Donavan Vásquez MD 29-May-2019 18:38:58
[2019-05-29] MEDS ORDERED: NORMAL SALINE 250 ML IV ONE (18:46)
[2019-05-29] MEDS ORDERED: RINGERS SOLUTION,LACTATED 1,000 ML IV ONE (19:08)
[2019-05-29] MEDS ORDERED: CEFTRIAXONE 1 GM/D5W RTU 1 GM/50 ML RTUPB IV ONE (19:09)
[2019-05-29] MEDS ORDERED: ASPIRIN 81 MG TABLET, CHEWABLE PO ONE (19:24)
[2019-05-29] MEDS ORDERED: DIAZEPAM INJ 10 MG/2 ML DISP.SYRIN IV PRN (20:12)
[2019-05-29] MEDS ORDERED: MORPHINE SULFATE 10 MG/ML INJ IV PRN (20:12)
[2019-05-29] MEDS ORDERED: MAGNESIUM HYDROXIDE SUSP 30 ML UDCUP PO PRN (20:12)
[2019-05-29] MEDS ORDERED: HYDRALAZINE HCL INJ/PF 20 MG/1 ML SDV IV PRN (20:12)
[2019-05-29] MEDS ORDERED: MAG HYDROX/AL HYDROX/SIMETH SUSP 30 ML UDCUP PO PRN (20:12)
[2019-05-29] MEDS ORDERED: ACETAMINOPHEN 325 MG TABLET PO PRN (20:12)
[2019-05-29] MEDS ORDERED: ONDANSETRON 4 MG TAB.RAPDIS PO PRN (20:16)
[2019-05-29] MEDS ORDERED: ONDANSETRON HCL INJ/PF 4 MG/2 ML SDV IV PRN (20:16)
[2019-05-29] MEDS ORDERED: TEMAZEPAM 15 MG CAPSULE PO PRN (20:16)
[2019-05-29 21:24] LABS: FREE T3 2.79 pg/mL (2.77-5.27); FREE T4 (FREE THYROXINE) 1.14 ng/dL (0.78-2.19)
[2019-05-29 21:54] LABS: ALBUMIN 3.8 g/dL (3.5-5.0); ALKALINE PHOSPHATASE 63 U/L (38-126); ANION GAP 9 (5-19); ASPARTATE AMINO TRANSFERASE 27 U/L (14-36); BILIRUBIN,DIRECT 0.1 mg/dL (0.0-0.4); BILIRUBIN,TOTAL 0.2 mg/dL (0.2-1.3); BLOOD UREA NITROGEN 40 mg/dL (7-20); CALCIUM 9.6 mg/dL (8.4-10.2); CARBON DIOXIDE 23 mmol/L (22-30); CHLORIDE 107 mmol/L (98-107); GLUCOSE 97 mg/dL (75-110); POTASSIUM 4.1 mmol/L (3.6-5.0); TOTAL PROTEIN 6.6 g/dL (6.3-8.2)
[2019-05-29 22:07] LABS: CREATINE KINASE MB 1.24 ng/mL (<4.55)
[2019-05-29 22:12] LABS: TROPONIN I 0.034 ng/mL
[2019-05-29] MEDS: HEPARIN SOD (PORCINE) 5,000 UNIT/ML 1 ML VIAL SUBCUT SCH (23:05)
[2019-05-30] MEDS ORDERED: OXYCODONE HCL IR 5 MG TABLET PO PRN (00:15)
[2019-05-30] MEDS ORDERED: DIAZEPAM 5 MG TABLET PO PRN (00:15)
[2019-05-30] MEDS ORDERED: BENZONATATE 100 MG CAPSULE PO PRN (00:15)
[2019-05-30] MEDS ORDERED: FLUTICASONE NASAL SPRAY 50 MCG/SPRY 120 SPRAY/16 GM NASL PRN (00:15)
[2019-05-30] MEDS ORDERED: NITROGLYCERIN 0.4 MG/TAB 25 TAB/BOTTLE SL PRN (00:15)
[2019-05-30] MEDS ORDERED: OXYCODONE-ACETAMINOPHEN 5-325 MG TABLET PO PRN (00:15)
[2019-05-30] MEDS ORDERED: MECLIZINE HCL 25 MG TABLET PO PRN (00:15)
[2019-05-30] MEDS ORDERED: ONDANSETRON HCL 8 MG TABLET PO PRN (00:15)
[2019-05-30] MEDS ORDERED: CYCLOBENZAPRINE HCL 10 MG TABLET PO PRN (00:15)
--- NOTE | 2019-05-30 00:25 | PDOC H&P ---
History of Present Illness Admission Date/PCP: 05/29/2019 19:20 SUZETTE LOVING MD Patient complains of: Chest pain History of Present Illness: BOLIVAR GUEVARA is a 58 year old female who presented to the emergency room with acute chest pain. She admits abruptly developing chest pain this afternoon that has been variably present and of variable severity since its onset. She describes the pain as a heaviness in the center of her chest with radiation of a tingling sensation in her left shoulder. The pain has been of moderate to severe intensity since its onset. She attempted taking nitroglycerin x3 tablets from her supply at home without improvement in symptoms. She further admits having similar episodes for the last 2 days. She has not identified any aggravating or ameliorating factors for her chest pain. In the emergency room she was found to have an EKG and initial cardiac enzymes which showed no evidence of myocardial ischemia or injury. Patient was subsequently admitted to the hospital on observation status for further evaluation and treatment. Past Medical History Cardiac Medical History: Reports: Congestive Heart Failure, Hyperlipidema, Hypertension Denies: Coronary Artery Disease, Myocardial Infarction, Peripheral Vascular Disease Pulmonary Medical History: Reports: Asthma Denies: Chronic Obstructive Pulmonary Disease (COPD), Respiratory Failure, Tuberculosis EENT Medical History: Denies: Cataracts, Ears - Hearing aids Neurological Medical History: Reports: Ischemic CVA, Seizures, Other - Vertigo Denies: Hemorrhagic CVA, Multiple Sclerosis Endocrine Medical History: Reports: Other - Prediabetes Denies: Diabetes Mellitus Type 1, Diabetes Mellitus Type 2, Hyperthyroidism, Hypothyroidism Renal/ Medical History: Reports: Chronic Kidney Disease, Other - Lupus nephritis Denies: Nephrolithiasis Malignancy Medical History: Reports: None GI Medical History: Reports: Gastroesophageal Reflux Disease, Other - Irritable bowel syndrome, hemorrhoids Denies: Cirrhosis, Crohn's Disease, Hepatitis, Ulcerative Colitis Musculoskeltal Medical History: Reports: Arthritis, Fibromyalgia, Other Skin Medical History: Reports: Other - Systemic lupus erythematosus Denies: Eczema, Psoriasis Psychiatric Medical History: Reports: Depression, General Anxiety Disorder Denies: Alcohol Dependency, Substance Abuse, Tobacco Dependency Traumatic Medical History: Reports: None Hematology: Reports: Other - Idiopathic thrombocytopenic purpura Denies: Anemia Infectious History Note: Herpes Past Surgical History Past Surgical History: Reports: Cardiac Catheterization, Hysterectomy, Orthopedic Surgery - Carpal tunnel surgery, Splenectomy, Other - Cervical biopsy, kidney biopsy, bilateral breast biopsies, retinal surgery. Social History Information Source: Patient Lives with: Alone Smoking Status: Never Smoker Frequency of Alcohol Use: None Hx Recreational Drug Use: No Drugs: None Hx Prescription Drug Abuse: No - Advance Directive Resuscitation Status: Full Code Surrogate healthcare decision maker:: Elif Gatica Family History Family History: CAD, COPD, CVA, Hypertension, Malignancy. denies: DM Parental Family History Reviewed: Yes Children Family History Reviewed: No Sibling(s) Family History Reviewed.: Yes Medication/Allergy Home Medications: Amlodipine Besylate [Norvasc 10 mg Tablet] 10 mg PO QHS 05/29/19 Aspirin [Aspirin 81 mg Chewable Tablet] 81 mg PO DAILY 05/29/19 Atorvastatin Calcium [Lipitor 20 mg Tablet] 20 mg PO DAILY 05/29/19 Benzonatate [Tessalon Perles 100 mg Capsule] 100 mg PO Q8HP PRN 05/29/19 Calcium Carbonate/Vitamin D3 [Calcium 600 + Vit D 400 Tablet] 1 tab PO DAILY 05/29/19 Carvedilol [Coreg 6.25 mg Tablet] 6.25 mg PO Q12 05/29/19 Cyclobenzaprine HCl [Flexeril 10 mg Tablet] 10 mg PO TIDP PRN 05/29/19 Diazepam [Valium 5 mg Tablet] 5 mg PO DAILYP PRN 05/29/19 Escitalopram Oxalate [Lexapro] 20 mg PO DAILY 05/29/19 Esomeprazole Mag Trihydrate [Nexium] 40 mg PO DAILYP PRN 05/29/19 Fexofenadine HCl [[place]] 180 mg PO DAILY 05/29/19 Fluticasone Propionate [Flonase Nasal [place] 50 Mcg/[place] 16 gm] 1 spray NASL PRN PRN 05/29/19 Gabapentin [Neurontin 300 mg Capsule] 600 mg PO Q8 05/29/19 Hydroxychloroquine Sulfate [Plaquenil 200 mg Tablet] 400 mg PO DAILY 05/29/19 Levetiracetam [Keppra 500 mg Tablet] 500 mg PO QHS 05/29/19 Lidocaine [Lidoderm 5% (700 mg) Transdermal Patch] 1 patch TP DAILYP PRN 05/29/19 Meclizine HCl [Antivert 25 mg Tablet] 25 mg PO Q6HP PRN 05/29/19 Mycophenolate Mofetil [Cellcept 250 mg Capsule] 1,000 mg PO DAILY 05/29/19 Nitroglycerin [Nitrostat 0.4 mg (1/150 Gr) Tabs 25/Bottle] 1 tab SL Q5MP PRN 05/29/19 Ondansetron HCl [Zofran 4 mg Tablet] 4 mg PO Q4HP PRN 05/29/19 Oxycodone HCl [Oxy-Ir 5 mg Tablet] 5 mg PO Q6HP PRN 05/29/19 Oxycodone HCl/Acetaminophen [Percocet 10-325 Mg Tablet] 1 each PO ASDIR PRN 05/29/19 Prednisone [Deltasone 5 mg Tablet] 5 mg PO DAILY 05/29/19 Ranitidine HCl [Zantac] 300 mg PO DAILY 05/29/19 Trazodone HCl [Desyrel] 100 mg PO QHS 05/29/19 Valacyclovir HCl [Valtrex 500 Mg Tablet] 1,000 mg PO DAILY 05/29/19 Vitamin E [Natural Vitamin E] 400 unit PO DAILY 05/29/19 Allergies/Adverse Reactions: bee venom protein (honey bee) Allergy (Severe, Verified 05/29/19 16:43) brompheniramine maleate [From Lodrane] Allergy (Severe, Verified 05/29/19 16:43) homatropine [Homatropine] Allergy (Severe, Verified 05/29/19 16:43) hydrocodone [Hydrocodone] Allergy (Severe, Verified 05/29/19 16:43) ketorolac tromethamine [From Toradol] Allergy (Severe, Verified 05/29/19 16:43) phenytoin sodium [From Dilantin] Allergy (Severe, Verified 05/29/19 16:43) pseudoephedrine HCl [From Lodrane] Allergy (Severe, Verified 05/29/19 16:43) Sulfa (Sulfonamide Antibiotics) Allergy (Severe, Verified 05/29/19 16:43) trimethoprim [From Septra] Allergy (Severe, Verified 05/29/19 16:43) ant bites Allergy (Severe, Uncoded 05/29/19 16:43) Review of Systems Constitutional: ABSENT: chills, fever(s) Eyes: ABSENT: visual disturbances, other - Eye pain Ears: ABSENT: hearing changes, other - Ear pain Nose, Mouth, and Throat: ABSENT: mouth pain, sore throat Cardiovascular: PRESENT: as per HPI, chest pain. ABSENT: dyspnea on exertion, edema, orthropnea, palpitations Respiratory: ABSENT: cough, dyspnea Gastrointestinal: ABSENT: abdominal pain, constipation, diarrhea, nausea, vomiting Genitourinary: ABSENT: dysuria, hematuria Musculoskeletal: PRESENT: other - Chronic pain. ABSENT: joint swelling, muscle weakness Integumentary: ABSENT: pruritus, rash Neurological: ABSENT: confusion, convulsions, focal weakness, memory loss, syncope Psychiatric: ABSENT: anxiety, depression Endocrine: ABSENT: cold intolerance, heat intolerance Hematologic/Lymphatic: ABSENT: easy bleeding, easy bruising Allergic/Immunologic: ABSENT: seasonal rhinorrhea Physical Exam Vital Signs: Temp Pulse Resp BP Pulse Ox 98.2 F 89 18 138/71 H 95 05/29/19 16:54 05/29/19 18:05 05/29/19 18:05 05/29/19 18:05 05/29/19 18:05 Intake & Output 05/27/19 05/28/19 05/29/19 23:59 23:59 23:59 Weight 88.4 kg General appearance: PRESENT: no acute distress, cooperative Head exam: PRESENT: atraumatic, normocephalic Eye exam: PRESENT: conjunctiva pink. ABSENT: conjunctival injection, scleral icterus Ear exam: PRESENT: normal external ear exam. ABSENT: bleeding, drainage Mouth exam: PRESENT: dry mucosa, neck supple Neck exam: ABSENT: JVD, thyromegaly, tracheal deviation Respiratory exam: PRESENT: clear to auscultation rush, symmetrical, unlabored Cardiovascular exam: PRESENT: RRR. ABSENT: clicks, gallop, rubs Pulses: PRESENT: normal radial pulses, normal dorsalis pedis pul Vascular exam: PRESENT: normal capillary refill. ABSENT: pallor GI/Abdominal exam: PRESENT: normal bowel sounds, soft Rectal exam: PRESENT: deferred Extremities exam: ABSENT: joint swelling, pedal edema Musculoskeletal exam: ABSENT: deformity, dislocation Neurological exam: PRESENT: alert, oriented to person, oriented to place, oriented to time, oriented to situation, CN II-XII grossly intact, motor sensory deficit - Mild hemiplegia noted (uses cane for ambulation) Psychiatric exam: PRESENT: appropriate affect, normal mood Skin exam: PRESENT: dry, intact, warm. ABSENT: jaundice, rash, urticaria Results Laboratory Results: 05/29/19 18:00 05/29/19 18:00 05/29/19 05/29/19 05/29/19 17:54 18:00 18:00 WBC 6.3 RBC 4.02 Hgb 12.5 Hct 36.9 MCV 92 MCH 31.1 MCHC 34.0 RDW 14.0 Plt Count 206 Seg Neutrophils % 67.5 Sodium 142.2 Potassium 4.7 Chloride 107 Carbon Dioxide 25 Anion Gap 10 BUN 38 H Creatinine 2.05 H Est GFR ( Amer) 30 L Glucose 94 Calcium 10.0 Magnesium 2.2 Total Bilirubin 0.4 AST 27 Alkaline Phosphatase 62 Total Protein 6.6 Albumin 4.0 Lipase 215.6 Urine Color DARK YELLOW Urine Appearance CLOUDY Urine pH 5.0 Ur Specific [place] 1.017 Urine Protein 100 H Urine Glucose (UA) NEGATIVE Urine Ketones NEGATIVE Urine Blood SMALL H Urine Nitrite POSITIVE H Ur Leukocyte Esterase LARGE H Urine WBC (Auto) >182 Urine RBC (Auto) 69 05/29/19 18:00 Troponin I 0.024 Impressions: Chest X-Ray 05/29/19 16:57 IMPRESSION: NO ACUTE RADIOGRAPHIC FINDING IN THE CHEST. Head CT 05/29/19 17:03 IMPRESSION: MILD CHRONIC CHANGES OF ATROPHY AND MICROVASCULAR ISCHEMIA. NO ACUTE PROCESS. EVIDENCE OF ACUTE STROKE: NO. Assessment and Plan - Diagnosis (1) Chest pain Qualifiers: Chest pain type: unspecified Qualified Code(s): R07.9 - Chest pain, unspecified Is this a current diagnosis for this admission?: Yes Plan: Serial cardiac enzymes and EKGs will be obtained. Patient will be treated with morphine sulfate 2 to 4 mg IV every 2 hours on an as needed basis using a sliding scale for chest pain. A Cardiolite stress test will be obtained in the morning with further evaluation and treatment to be determined based upon those results. (2) Hyperlipidemia Qualifiers: Hyperlipidemia type: unspecified Qualified Code(s): E78.5 - Hyperlipidemia, unspecified Is this a current diagnosis for this admission?: Yes Plan: A lipid profile will be obtained to assess the efficacy of the patient's current therapy. Patient will be continued on her usual lipid therapy during her hospital course unless changes are indicated. (3) HTN (hypertension) Qualifiers: Hypertension type: unspecified Qualified Code(s): I10 - Essential (primary) hypertension Is this a current diagnosis for this admission?: Yes Plan: Patient's blood pressure be monitored closely throughout her hospital course. She will be continued on her usual antihypertensive/cardiac regiment during her hospital stay. She will be in a monitored bed throughout her hospital stay. Adjustments to her medications will be made only as indicated. (4) Urinary tract infection Qualifiers: Urinary tract infection type: acute cystitis Hematuria presence: without hematuria Qualified Code(s): N30.00 - Acute cystitis without hematuria Is this a current diagnosis for this admission?: Yes Plan: Patient's urinary tract infection was initially treated with ceftriaxone in the emergency room. Patient will be converted to oral Ceftin during her hospital [facility] [place]. (5) Lupus (systemic lupus erythematosus) Qualifiers: Systemic lupus erythematosus type: unspecified Systemic lupus erythematosus organ involvement: unspecified Qualified Code(s): M32.9 - Systemic lupus erythematosus, unspecified Is this a current diagnosis for this admission?: Yes Plan: Patient will be continued on her usual medical regiment for treatment of her systemic lupus erythematosus and associated symptoms. (6) Chronic lupus nephritis Is this a current diagnosis for this admission?: Yes Plan: Patient's renal functions to be closely monitored throughout her hospital course. Nephrology consultation will be obtained if required. (7) Seizure disorder Is this a current diagnosis for this admission?: Yes Plan: Patient will be continued on her usual anticonvulsant regiment during her hos pital course. Adjustments to her medications will be made only as indicated. - Time Time Spent with patient: 25-34 minutes Medications reviewed and adjusted accordingly: Yes Anticipated discharge: Home Within: within 24 hours - Inpatient Certification Based on my medical assessment, after consideration of the patient's comorbidities, presenting symptoms, or acuity I expect that the services needed warrant INPATIENT care.: No I certify that my determination is in accordance with my understanding of Medicare's requirements for reasonable and necessary INPATIENT services [42 CFR 412.3e].: No Medical Necessity: Significant Comorbidiites Make Outpatient Treatment Too Risky, Need Close Monitoring Due to Risk of Patient Decompensation, Need For Continuous Telemetry Monitoring, Risk of Complication if Not Cared For in Hospital
[2019-05-30 03:38] LABS: CHOLESTEROL 146.44 mg/dL (0-200); TRIGLYCERIDES 56 mg/dL (<150)
[2019-05-30 03:50] LABS: DIRECT LDL 82 mg/dL (<100)
[2019-05-30 03:51] LABS: CREATINE KINASE MB 1.25 ng/mL (<4.55); TROPONIN I 0.029 ng/mL
[2019-05-30] MEDS: HEPARIN SOD (PORCINE) 5,000 UNIT/ML 1 ML VIAL SUBCUT SCH ×2 (05:22→14:06)
[2019-05-30] MEDS: GABAPENTIN 300 MG CAPSULE PO SCH ×2 (05:22→14:06)
[2019-05-30] MEDS ORDERED: PANTOPRAZOLE SODIUM 40 MG TABLET.DR PO SCH (06:00)
--- NOTE | 2019-05-30 07:20 | EKG REPORT ---
SEVERITY:- NORMAL ECG - SINUS RHYTHM : Confirmed by: Donavan Vásquez MD 30-May-2019 07:19:49
[2019-05-30] MEDS ORDERED: CEFUROXIME 250 MG TABLET PO SCH (08:00)
[2019-05-30] MEDS ORDERED: HYDROXYCHLOROQUINE SULFATE 200 MG TABLET PO SCH (10:00)
[2019-05-30] MEDS ORDERED: CALCIUM CARBONATE 250 MG/VITAMIN D3 125 UNIT TABLET PO SCH (10:00)
[2019-05-30] MEDS ORDERED: DOCUSATE SODIUM 100 MG CAPSULE PO SCH (10:00)
[2019-05-30] MEDS ORDERED: VITAMIN E PO SCH (10:00)
[2019-05-30] MEDS ORDERED: CARVEDILOL 6.25 MG TABLET PO SCH (10:00)
[2019-05-30] MEDS ORDERED: ESCITALOPRAM OXALATE 10 MG TABLET PO SCH (10:00)
[2019-05-30] MEDS ORDERED: MYCOPHENOLATE MOFETIL 250 MG CAPSULE PO SCH (10:00)
[2019-05-30] MEDS ORDERED: VALACYCLOVIR HCL 500 MG TABLET PO SCH (10:00)
[2019-05-30] MEDS ORDERED: ASPIRIN 81 MG TABLET, CHEWABLE PO SCH (10:00)
[2019-05-30] MEDS ORDERED: LIDOCAINE 5% (700 MG) TRANSDERMAL ADH..PATCH TP SCH (10:00)
[2019-05-30] MEDS ORDERED: ATORVASTATIN CALCIUM 20 MG TABLET PO SCH (10:00)
[2019-05-30] MEDS ORDERED: VITAMIN E (DL, ACETATE) 400 UNIT CAPSULE PO SCH (10:00)
[2019-05-30] MEDS ORDERED: REGADENOSON INJ 0.4 MG/5 ML DISP.SYRIN IV ONE (11:26)
--- NOTE | 2019-05-30 12:29 | PDOC DISCHARGE SUMMARY ---
General - Admit/Disc Date/PCP Admission Date/Primary Care Provider: 05/29/19 19:37 SUZETTE LOVING MD Discharge Date: 05/30/19 - Additional Information Resuscitation Status: Full Code Discharge Diet: As Tolerated Discharge Activity: Activity As Tolerated Home Medications: Amlodipine Besylate [Norvasc 10 mg Tablet] 10 mg PO QHS 05/29/19 Aspirin [Aspirin 81 mg Chewable Tablet] 81 mg PO DAILY 05/29/19 Atorvastatin Calcium [Lipitor 20 mg Tablet] 20 mg PO DAILY 05/29/19 Benzonatate [Tessalon Perles 100 mg Capsule] 100 mg PO Q8HP PRN 05/29/19 Calcium Carbonate/Vitamin D3 [Calcium 600 + Vit D 400 Tablet] 1 tab PO DAILY 05/29/19 Carvedilol [Coreg 6.25 mg Tablet] 6.25 mg PO Q12 05/29/19 Cyclobenzaprine HCl [Flexeril 10 mg Tablet] 10 mg PO TIDP PRN 05/29/19 Diazepam [Valium 5 mg Tablet] 5 mg PO DAILYP PRN 05/29/19 Escitalopram Oxalate [Lexapro] 20 mg PO DAILY 05/29/19 Esomeprazole Mag Trihydrate [Nexium] 40 mg PO DAILYP PRN 05/29/19 Fexofenadine HCl [[place]] 180 mg PO DAILY 05/29/19 Fluticasone Propionate [Flonase Nasal [place] 50 Mcg/[place] 16 gm] 1 spray NASL PRN PRN 05/29/19 Gabapentin [Neurontin 300 mg Capsule] 600 mg PO Q8 05/29/19 Hydroxychloroquine Sulfate [Plaquenil 200 mg Tablet] 400 mg PO DAILY 05/29/19 Levetiracetam [Keppra 500 mg Tablet] 500 mg PO QHS 05/29/19 Lidocaine [Lidoderm 5% (700 mg) Transdermal Patch] 1 patch TP DAILYP PRN 05/29/19 Meclizine HCl [Antivert 25 mg Tablet] 25 mg PO Q6HP PRN 05/29/19 Mycophenolate Mofetil [Cellcept 250 mg Capsule] 1,000 mg PO DAILY 05/29/19 Nitroglycerin [Nitrostat 0.4 mg (1/150 Gr) Tabs 25/Bottle] 1 tab SL Q5MP PRN 05/29/19 Ondansetron HCl [Zofran 4 mg Tablet] 4 mg PO Q4HP PRN 05/29/19 Oxycodone HCl [Oxy-Ir 5 mg Tablet] 5 mg PO Q6HP PRN 05/29/19 Oxycodone HCl/Acetaminophen [Percocet 10-325 mg Tablet] 1 each PO ASDIR PRN 05/29/19 Prednisone [Deltasone 5 mg Tablet] 5 mg PO DAILY 05/29/19 Ranitidine HCl [Zantac] 300 mg PO DAILY 05/29/19 Trazodone HCl [Desyrel] 100 mg PO QHS 05/29/19 Valacyclovir HCl [Valtrex 500 mg Tablet] 1,000 mg PO DAILY 05/29/19 Vitamin E [Natural Vitamin E] 400 unit PO DAILY 05/29/19 History of Present Illness History of Present Illness: BOLIVAR GUEVARA is a 58 year old female who presented to the emergency room with acute chest pain. She admits abruptly developing chest pain this afternoon that has been variably present and of variable severity since its onset. She describes the pain as a heaviness in the center of her chest with radiation of a tingling sensation in her left shoulder. The pain has been of moderate to severe intensity since its onset. She attempted taking nitroglycerin x3 tablets from her supply at home without improvement in symptoms. She further admits having similar episodes for the last 2 days. She has not identified any aggravating or ameliorating factors for her chest pain. In the emergency room she was found to have an EKG and initial cardiac enzymes which showed no evidence of myocardial ischemia or injury. Patient was subsequently admitted to the hospital on observation status for further evaluation and treatment. Hospital Course Hospital Course: (1) Chest pain Serial cardiac enzymes and EKGs obtained. Patient treated with morphine sulfate 2 to 4 mg IV every 2 hours on an as needed basis using a sliding scale for chest pain. A Cardiolite stress test was done and shows small area of reversible ischemia apical left wall as per Dr. Whitaker. (2) Hyperlipidemia Patient continued on her usual lipid therapy (3) HTN (hypertension) Patient's blood pressure be monitored closely throughout her hospital course. She continued on her usual antihypertensive/cardiac regiment during her hospital stay. (4) abnormal UA Denies any symptoms. No antibiotics. (5) Lupus (systemic lupus erythematosus) Patient continued on her usual medical regiment for treatment of her systemic lupus erythematosus and associated symptoms. (6) Chronic lupus nephritis Patient's renal functions closely monitored throughout her hospital course. (7) Seizure disorder Patient continued on her usual anticonvulsant regiment during her hospital course. Seen by Dr. Hair who recommends discharge and follow-up with Dr. Stone her cushion installer. Patient is actually now totally asymptomatic. She is hemodynamic stable. Physical Exam Vital Signs: Temp Pulse Resp BP Pulse Ox 97.6 F 77 15 148/87 H 100 05/30/19 08:03 05/30/19 08:03 05/30/19 08:03 05/30/19 08:03 05/30/19 08:03 Intake & Output 05/29/19 05/30/19 05/31/19 06:59 06:59 06:59 Intake Total 1050 Balance 1050 Weight 199 lb 4.766 oz Exam: Patient is no acute distress Alert oriented to time place person No anxiety or depression Head: atraumatic normocephalic Pupils: are equal reactive Neck: is supple and trachea is central no lymphadenopathy No pharyngeal erythema or exudates Heart: Regular rate and rhythm Lungs: clear no distress Abdomen: nontender nondistended Neurological exam: unremarkable Musculoskeletal: No joint swelling or effusion chronic lower back pain and tenderness No suicidal or homicidal ideation Results Laboratory Results: 05/29/19 18:00 05/29/19 20:53 05/29/19 05/29/19 05/29/19 17:54 18:00 18:00 WBC 6.3 RBC 4.02 Hgb 12.5 Hct 36.9 MCV 92 MCH 31.1 MCHC 34.0 RDW 14.0 Plt Count 206 Seg Neutrophils % 67.5 Sodium 142.2 Potassium 4.7 Chloride 107 Carbon Dioxide 25 Anion Gap 10 BUN 38 H Creatinine 2.05 H Est GFR ( Amer) 30 L Est GFR (Non-Af Amer) Glucose 94 Calcium 10.0 Magnesium 2.2 Total Bilirubin 0.4 AST 27 Alkaline Phosphatase 62 Total Protein 6.6 Albumin 4.0 Triglycerides Cholesterol LDL Cholesterol Direct VLDL Cholesterol HDL Cholesterol Lipase 215.6 TSH Free T4 Free T3 pg/mL Urine Color DARK YELLOW Urine Appearance CLOUDY Urine pH 5.0 Ur Specific [place] 1.017 Urine Protein 100 H Urine Glucose (UA) NEGATIVE Urine Ketones NEGATIVE Urine Blood SMALL H Urine Nitrite POSITIVE H Ur Leukocyte Esterase LARGE H Urine WBC (Auto) >182 Urine RBC (Auto) 69 05/29/19 05/29/19 05/29/19 18:00 18:00 20:53 WBC RBC Hgb Hct MCV MCH MCHC RDW Plt Count Seg Neutrophils % Sodium Cancelled 138.5 Potassium Cancelled 4.1 Chloride Cancelled 107 Carbon Dioxide Cancelled 23 Anion Gap Cancelled 9 BUN Cancelled 40 H Creatinine Cancelled 1.83 H Est GFR ( Amer) Cancelled 34 L Est GFR (Non-Af Amer) Cancelled Glucose Cancelled 97 Calcium Cancelled 9.6 Magnesium Total Bilirubin Cancelled 0.2 AST Cancelled 27 Alkaline Phosphatase Cancelled 63 Total Protein Cancelled 6.6 Albumin Cancelled 3.8 Triglycerides Cholesterol LDL Cholesterol Direct VLDL Cholesterol HDL Cholesterol Lipase TSH Free T4 1.14 Free T3 pg/mL 2.79 Urine Color Urine Appearance Urine pH Ur Specific [place] Urine Protein Urine Glucose (UA) Urine Ketones Urine Blood Urine Nitrite Ur Leukocyte Esterase Urine WBC (Auto) Urine RBC (Auto) 05/30/19 05/30/19 03:01 03:01 WBC RBC Hgb Hct MCV MCH MCHC RDW Plt Count Seg Neutrophils % Sodium Potassium Chloride Carbon Dioxide Anion Gap BUN Creatinine Est GFR ( Amer) Est GFR (Non-Af Amer) Glucose Calcium Magnesium 2.0 Total Bilirubin AST Alkaline Phosphatase Total Protein Albumin Triglycerides 56 Cholesterol 146.44 LDL Cholesterol Direct 82 VLDL Cholesterol 11.0 HDL Cholesterol 53 Lipase TSH 2.16 Free T4 Free T3 pg/mL Urine Color Urine Appearance Urine pH Ur Specific [place] Urine Protein Urine Glucose (UA) Urine Ketones Urine Blood Urine Nitrite Ur Leukocyte Esterase Urine WBC (Auto) Urine RBC (Auto) 05/29/19 05/29/19 05/29/19 18:00 18:00 20:53 Creatine Kinase 124 CK-MB (CK-2) 1.24 Troponin I 0.024 0.034 NT-Pro-B Natriuret Pep 225 05/30/19 05/30/19 03:01 03:01 Creatine Kinase 108 CK-MB (CK-2) 1.25 Troponin I 0.029 NT-Pro-B Natriuret Pep Impressions: Chest X-Ray 05/29/19 16:57 IMPRESSION: NO ACUTE RADIOGRAPHIC FINDING IN THE CHEST. Head CT 05/29/19 17:03 IMPRESSION: MILD CHRONIC CHANGES OF ATROPHY AND MICROVASCULAR ISCHEMIA. NO ACUTE PROCESS. EVIDENCE OF ACUTE STROKE: NO. Qualifiers - * PATIENT BEING DISCHARGED WITH ANY OF THE FOLLOWING DIAGNOSIS: No Acute Heart Failure - Is this a Heart Failure Patient?: No
[2019-05-30 13:15] LABS: CREATINE KINASE MB 1.16 ng/mL (<4.55)
[2019-05-30 13:20] LABS: TROPONIN I < 0.012 ng/mL
[2019-05-30 14:18] VITALS: BP 160/82
[2019-05-30] MEDS ORDERED: TRAZODONE HCL 50 MG TABLET PO SCH (22:00)
[2019-05-30] MEDS ORDERED: AMLODIPINE BESYLATE 10 MG TABLET PO SCH (22:00)
[2019-05-30] MEDS ORDERED: LEVETIRACETAM 500 MG TABLET PO SCH (22:00)
--- NOTE | 2019-05-30 22:40 | DRAGON STRESS TEST REPORT ---
Intravenous Lexiscan Cardiolite stress test using single photon emmision computerized tomography. Date of procedure: 05/30/2019. Ordering Provider: Dr. Nadeem Casillas. Patient's status: In Patient. Indication: Chest pain. Coronary risk factors: Age, hypertension, dyslipidemia, and family history of coronary artery disease. Resting EKG: Sinus Rhythm. EKG is within normal limits. Stress EKG: No changes of ischemia. The patient had no chest pain or discomfort. And there was no arrhythmias seen. Reason for termination: Protocol. Conclusions: Normal EKG and hemodynamic response to IV Lexiscan. Nuclear data: At rest the patient was given 13.67 millicuries of technetium 99m sestamibi injected intravenously. As per protocol rest non gated SPECT images were obtained. Subsequently the patient was given intravenous Lexiscan at a dose of 0.4 mg in 5 mL intravenously, followed by flush with normal saline. Subsequently the stress dose of 41.7 millicuries of technetium 99m sestamibi was injected intravenously. As per protocol stress gated images were obtained. Nuclear interpretation: Review of images showed that small area of perfusion defect in the stress images only involving the apical lateral wall. This normalizes on the rest images. This area has normal motion contraction and thickening by gated study. The rest of the segments of the myocardium had normal perfusion at rest, and normal perfusion post stress with IV Lexiscan. All segments of the myocardium had normal motion, contraction, and thickening by gated study. T. I D. ratio was normal at . There is no transient ischemic dilatation of the left ventricle. Computer read rest, and stress left ventricular ejection fraction were %, and %, respectively. Visually both the stress and rest ejection fractions were normal, and greater than 55%. Conclusion: 1. There is scintigraphic evidence of Lexiscan induced myocardial ischemia involving is very small area of apical lateral wall.. 2. There is no scintigraphic evidence of myocardial infarction/scar. Recommendations: 1. CORRELATE CLINICALLY. 2. Aggressive risk factor modification, and treating the underlying co- morbidities. . Patient recommended to have close cardiology follow-up with her inserter promotional item in [place]. SAAD
== END 2019-05-30 13:45 | disposition home or self-care (01) ==
LOC: ER 16:33 → EH 19:37 → 4N 22:42
PROVIDERS: ADMIT Emergency Medicine; ATTEND Emergency Medicine
DX: R07.9 Chest pain, unspecified (principal); E78.5 Hyperlipidemia, unspecified; G40.909 Epilepsy, unspecified, not intractable, without status epilepticus; M32.14 Glomerular disease in systemic lupus erythematosus; M32.9 Systemic lupus erythematosus, unspecified; R20.2 Paresthesia of skin; R82.90 Unspecified abnormal findings in urine; I13.0 Hypertensive heart and chronic kidney disease with heart failure and stage 1 through stage 4 chronic kidney disease, or unspecified chronic kidney disease; N18.9 Chronic kidney disease, unspecified; I50.9 Heart failure, unspecified; K21.9 Gastro-esophageal reflux disease without esophagitis; G89.29 Other chronic pain; I69.351 Hemiplegia and hemiparesis following cerebral infarction affecting right dominant side; M31.1 Thrombotic microangiopathy; R11.10 Vomiting, unspecified; Z79.899 Other long term (current) drug therapy; Z79.82 Long term (current) use of aspirin; Z60.2 Problems related to living alone; Z90.81 Acquired absence of spleen
CPT/HCPCS: 93005 ×2; 99285; 96361; 96365; 36415 ×2; 84439; 82553 ×2; 82962; 82550 ×2; 83690; 83735 ×2; 84443; 85025; 85610; 85730; 87070; 80053; 81001; 84484 ×2; 84481; 83036; 80061; 83880; 93017; 71046; 78452; 70450; 93010; G0378 ×3; A9500; J2785; A9270 ×9; J7120; J0696; Q9969; J3490; J7517

== ENCOUNTER 2019-07-16 07:01 | Emergency (ER) | payer MEDICARE, MEDICAID ==
[2019-07-16 10:26] LABS: APPEARANCE,URINE SLIGHTLY-CLOUDY; BILIRUBIN,URINE NEGATIVE (NEGATIVE); COLOR,URINE YELLOW; GLUCOSE, URINE NEGATIVE (NEGATIVE); KETONES,URINE NEGATIVE (NEGATIVE); PROTEIN,URINE 30 mg/dL (NEGATIVE); URINE SPECIFIC GRAVITY 1.011; UROBILINOGEN,URINE NEGATIVE mg/dL (<2.0)
--- NOTE | 2019-07-16 10:41 | ER Document Report ---
ED General - General Chief Complaint: Sore Throat Stated Complaint: SORE THROAT,UTI SYMPTOMS Time Seen by Provider: 07/16/19 08:06 Primary Care Provider: SUZETTE LOVING MD [Primary Care Provider] - Follow up as needed TRAVEL OUTSIDE OF THE [place] IN LAST 30 DAYS: No - HPI Notes: 58f w/ pmh per below but who has otherwise been in her baseline state of functionint and health for some time now, comes today though for continuation of sore throat she first noticed ~2 d/a. she came b/c she wants to be proactive since believes it's slightly worse this am c/t yesterday. she says has cont po intake solids/liquids but does not some pain w/ this since yesterday which she feels is more noticeable on the Left. no f/c/s she's noticied. no h/v/abd pain. she walso presents so she can check if she has a urine infection, as for ~a wk feels urine smells foul and is more cloudy which she heard can be signs of infection. She denies any periods of abd/pelvic pain or dysuria/hematuria /urgency or frequency, rentention/incontinence. denies any sick contacts, rashes, diarrhea. - Related Data Allergies/Adverse Reactions: bee venom protein (honey bee) Allergy (Severe, Verified 05/29/19 16:43) brompheniramine maleate [From Lodrane] Allergy (Severe, Verified 05/29/19 16:43) homatropine [Homatropine] Allergy (Severe, Verified 05/29/19 16:43) hydrocodone [Hydrocodone] Allergy (Severe, Verified 05/29/19 16:43) ketorolac tromethamine [From Toradol] Allergy (Severe, Verified 05/29/19 16:43) phenytoin sodium [From Dilantin] Allergy (Severe, Verified 05/29/19 16:43) pseudoephedrine HCl [From Lodrane] Allergy (Severe, Verified 05/29/19 16:43) Sulfa (Sulfonamide Antibiotics) Allergy (Severe, Verified 05/29/19 16:43) trimethoprim [From Septra] Allergy (Severe, Verified 05/29/19 16:43) ant bites Allergy (Severe, Uncoded 09/17/19 16:43) Home Medications: plaquinal. gabapentin. prednisone Past Medical History - Social History Smoking Status: Never Smoker Frequency of alcohol use: None Family History: Reviewed & Not Pertinent, CAD, COPD, CVA, Hypertension, Malignancy. denies: DM Patient has suicidal ideation: No Patient has homicidal ideation: No - Past Medical History Cardiac Medical History: Reports: Hx Congestive Heart Failure, Hx Hypercholesterolemia, Hx Hypertension Denies: Hx Coronary Artery Disease, Hx Heart Attack, Hx Peripheral Vascular Disease Pulmonary Medical History: Reports: Hx Asthma Denies: Hx COPD, Hx Pneumonia, Hx Respiratory Failure, Hx Tuberculosis Neurological Medical History: Reports: Hx Seizures Endocrine Medical History: Denies: Hx Diabetes Mellitus Type 1, Hx Diabetes Gely litus Type 2, Hx Hyperthyroidism, Hx Hypothyroidism Renal/ Medical History: Denies: Hx Peritoneal Dialysis GI Medical History: Reports: Hx Gastroesophageal Reflux Disease. Denies: Hx Cirrhosis, Hx Crohn's Disease, Hx Hepatitis, Hx Ulcerative Colitis Musculoskeletal Medical History: Reports Hx Arthritis, Reports Hx Fibromyalgia Skin Medical History: Denies Hx Eczema, Denies Hx Psoriasis Psychiatric Medical History: Reports: Hx Depression Infectious Medical History: Denies: Hx Hepatitis Past Surgical History: Reports: Hx Abdominal Surgery - COLON BIOPSY, Hx Breast Surgery - BIOPSY, Hx Cardiac Catheterization, Hx Gynecologic Surgery - ENDOMETRIOSIS, Hx Hysterectomy, Hx Kidney (Renal Surgery), Hx Orthopedic Surgery - Carpal tunnel surgery, Other - Cervical biopsy, kidney biopsy, bilateral breast biopsies, retinal surgery. - Immunizations Immunizations up to date: Yes Hx Diphtheria, Pertussis, Tetanus Vaccination: No - LAST 2009 Hx Pneumococcal Vaccination: 07/13/12 Review of Systems - Review of Systems Constitutional: No symptoms reported, See HPI EENT: See HPI, Nose congestion, Throat pain. denies: Eye pain, Eye discharge, Blurred vision, Double vision, Ear pain, Nose discharge, Sinus pressure, Difficulty swallowing, Throat swelling, Mouth pain, Mouth swelling, Dental problem Cardiovascular: No symptoms reported Respiratory: No symptoms reported Gastrointestinal: No symptoms reported Genitourinary: No symptoms reported Female Genitourinary: No symptoms reported Musculoskeletal: No symptoms reported Skin: No symptoms reported Hematologic/Lymphatic: No symptoms reported Neurological/Psychological: No symptoms reported Physical Exam - Vital signs Vitals: Temp Pulse Resp BP Pulse Ox 98.0 F 99 18 156/103 H 99 07/16/19 07:05 07/16/19 07:05 07/16/19 07:05 07/16/19 07:05 07/16/19 07:05 Interpretation: Normal - General General appearance: Appears well, Alert In distress: None - HEENT Head: Normocephalic, Atraumatic Eyes: Normal Conjunctiva: Normal Extraocular movements intact: Yes Pupils: PERRL Sinus: Normal Nasal: No: Jayne deformity, Epistaxis, Purulent discharge, Swelling, Clear rhinorrhea Mouth/Lips: Normal Mucous membranes: Moist Pharynx: Other - very mild erythema posterior oropharynx w/o evidence of space occupying process. can visualize entire uvula/tongue.. No: Peritonsillar abscess, Tonsillar hypertrophy, Potential airway comprom. Neck: Normal. No: Shotty nodes, Thyromegally - Respiratory Respiratory status: No respiratory distress. No: Respiratory distress, Ta chypnea Chest status: Nontender. No: Tender Breath sounds: Normal. No: Rales, Rhonchi, Stridor, Wheezing Chest palpation: Normal - Cardiovascular Rhythm: Regular. No: Tachycardia Heart sounds: Normal auscultation Murmur: No Normal capillary refill: No - Abdominal Inspection: Normal Distension: No distension Bowel sounds: Normal Tenderness: Nontender Organomegaly: No organomegaly - Back Back: Normal, Nontender - Extremities General upper extremity: Normal inspection, Nontender, Normal color, Normal ROM, Normal temperature General lower extremity: Normal inspection, Nontender, Normal color, Normal ROM, Normal temperature, Normal weight bearing. No: Mina's sign - Neurological Neuro grossly intact: Yes Cognition: Normal Orientation: AAOx4 Daniel Coma Scale Eye Opening: Spontaneous Daniel Coma Scale Verbal: Oriented Daniel Coma Scale Motor: Obeys Commands [place] Coma Scale Total: 15 Speech: Normal Motor strength normal: LUE, RUE, LLE, RLE Sensory: Normal - Psychological Associated symptoms: Normal affect, Normal mood - Skin Skin Temperature: Warm Skin Moisture: Dry Skin Color: Normal Course - Re-evaluation Re-evalutation: 08/15/19 18:51 neg rapid strep and UA showed no signs of inction. reassured pt her exam showed clinically is still hdyrated. instructed cont to do so get good po intake, sleep. denies her ashtma has been issue at all and doesn't need refill on inhalers. explained warning signs like cont F >100.4, inabilityt to atke po, ttrouble breathing or swallowing. pt understands likely viral pharyngitis and plan of care and fu - Vital Signs Vital signs: Temp Pulse Resp BP Pulse Ox 97.7 F 70 16 168/84 H 98 07/16/19 11:00 07/16/19 11:00 07/16/19 11:00 07/16/19 11:00 07/16/19 11:00 - Laboratory Laboratory results interpreted by me: 07/16/19 09:40 Urine Protein 30 H Leukocyte Esterase Rfl MODERATE H Discharge - Discharge Clinical Impression: Pharyngitis, URI (upper respiratory infection) Condition: Good Disposition: HOME, SELF-CARE Additional Instructions: Today he had a negative rapid strep test. You may be early in her course of viral pharyngitis please stay hydrated and rested. If you start to have any fever 100.4 greater please see your doctor sooner, or if you have any other concerns please see your doctor sooner than already scheduled. Otherwise please return her to the ED if you have any vomiting trouble swallowing or breathing or fevers. I do not see any evidence of urinary infection today on your urine sample. Referrals: SUZETTE LOVING MD [Primary Care Provider] - Follow up as needed
[2019-07-16 11:04] VITALS: BP 168/84
== END 2019-07-16 11:10 | disposition home or self-care (01) ==
LOC: ER 07:01
DX: J02.9 Acute pharyngitis, unspecified (principal); J06.9 Acute upper respiratory infection, unspecified; I50.9 Heart failure, unspecified; E78.00 Pure hypercholesterolemia, unspecified; I11.0 Hypertensive heart disease with heart failure; Z88.2 Allergy status to sulfonamides; Z88.6 Allergy status to analgesic agent
CPT/HCPCS: 81001; 87070; 87086; 87088; 87186; 87880; 99283

== ENCOUNTER 2019-09-08 15:31 | Emergency (ER) | payer MEDICARE, MEDICAID ==
[2019-09-08 16:19] LABS: APPEARANCE,URINE CLEAR; BILIRUBIN,URINE NEGATIVE (NEGATIVE); COLOR,URINE YELLOW; GLUCOSE, URINE NEGATIVE (NEGATIVE); KETONES,URINE NEGATIVE (NEGATIVE); LEUKOCYTE ESTERASE,URINE TRACE (NEGATIVE); NITRITE,URINE NEGATIVE (NEGATIVE); PROTEIN,URINE 100 mg/dL (NEGATIVE); URINE SPECIFIC GRAVITY 1.016; UROBILINOGEN,URINE NEGATIVE mg/dL (<2.0)
--- NOTE | 2019-09-08 16:23 | ER Document Report ---
ED Medical Screen (RME) - General Chief Complaint: Pain With Urination Stated Complaint: ABDOMINAL PAIN, BURNING WITH URINATION Time Seen by Provider: 09/08/19 16:18 Primary Care Provider: SUZETTE LOVING MD [Primary Care Provider] - Follow up as needed Mode of Arrival: Ambulatory Information source: Patient Notes: 59-year-old female presents emergency department with complaints of low abdominal pain pain with void and strong smelling urine for the past week and a half. She also complains of an abscess to her left third finger for the past 3 days. 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 Denies fever vomiting diarrhea. Denies flank pain. I have greeted and performed a rapid initial assessment of this patient. A comprehensive ED assessment and evaluation of the patient, analysis of test results and completion of the medical decision making process will be conducted by additional ED providers. TRAVEL OUTSIDE OF THE [place] IN LAST 30 DAYS: No - Related Data Allergies/Adverse Reactions: bee venom protein (honey bee) Allergy (Severe, Verified 05/29/19 16:43) brompheniramine maleate [From Lodrane] Allergy (Severe, Verified 05/29/19 16:43) homatropine [Homatropine] Allergy (Severe, Verified 05/29/19 16:43) hydrocodone [Hydrocodone] Allergy (Severe, Verified 05/29/19 16:43) ketorolac tromethamine [From Toradol] Allergy (Severe, Verified 05/29/19 16:43) phenytoin sodium [From Dilantin] Allergy (Severe, Verified 05/29/19 16:43) pseudoephedrine HCl [From Lodrane] Allergy (Severe, Verified 05/29/19 16:43) Sulfa (Sulfonamide Antibiotics) Allergy (Severe, Verified 05/29/19 16:43) trimethoprim [From Septra] Allergy (Severe, Verified 05/29/19 16:43) ant bites Allergy (Severe, Uncoded 05/29/19 16:43) Past Medical History - Past Medical History Cardiac Medical History: Reports: Hx Congestive Heart Failure, Hx Hypercholesterolemia, Hx Hypertension Denies: Hx Coronary Artery Disease, Hx Heart Attack, Hx Peripheral Vascular Disease Pulmonary Medical History: Reports: Hx Asthma Denies: Hx COPD, Hx Pneumonia, Hx Respiratory Failure, Hx Tuberculosis Neurological Medical History: Reports: Hx Seizures Endocrine Medical History: Denies: Hx Diabetes Mellitus Type 1, Hx Diabetes Mellitus Type 2, Hx Hyperthyroidism, Hx Hypothyroidism Renal/ Medical History: Denies: Hx Peritoneal Dialysis GI Medical History: Reports: Hx Gastroesophageal Reflux Disease. Denies: Hx Cirrhosis, Hx Crohn's Disease, Hx Hepatitis, Hx Ulcerative Colitis Musculoskeltal Medical History: Reports Hx Arthritis, Reports Hx Fibromyalgia Skin Medical History: Denies Hx Eczema, Denies Hx Psoriasis Psychiatric Medical History: Reports: Hx Depression Infectious Medical History: Denies: Hx Hepatitis Past Surgical History: Reports: Hx Abdominal Surgery - COLON BIOPSY, Hx Breast Surgery - BIOPSY, Hx Cardiac Catheterization, Hx Gynecologic Surgery - ENDOMETRIOSIS, Hx Hysterectomy, Hx Kidney (Renal Surgery), Hx Orthopedic Surgery - Carpal tunnel surgery, Other - Cervical biopsy, kidney biopsy, bilateral breast biopsies, retinal surgery. - Immunizations Immunizations up to date: Yes Hx Diphtheria, Pertussis, Tetanus Vaccination: No - LAST 2009 Physical Exam - Vital signs Vitals: Temp Pulse Resp BP Pulse Ox 98.4 F 82 18 155/64 H 98 09/08/19 15:44 09/08/19 15:44 09/08/19 15:44 09/08/19 15:44 09/08/19 15:44 Course - Vital Signs Vital signs: Temp Pulse Resp BP Pulse Ox 98.4 F 82 18 155/64 H 98 09/08/19 15:44 09/08/19 15:44 09/08/19 15:44 09/08/19 15:44 09/08/19 15:44 - Laboratory Laboratory results interpreted by me: 09/08/19 15:47 Urine Protein 100 H Ur Leukocyte Esterase TRACE H Urine Ascorbic Acid 40 H Doctor's Discharge - Discharge Referrals: SUZETTE LOVING MD [Primary Care Provider] - Follow up as needed
[2019-09-08 17:13] LABS: ABSOLUTE MONOCYTES (AUTO) 0.2 10^3/uL (0.1-1.4); HEMOGLOBIN 13.1 g/dL (12.0-15.5); TOTAL CELLS COUNTED % (AUTO) 100 %
[2019-09-08 17:19] LABS: ABSOLUTE LYMPHOCYTES (AUTO) 1.1 10^3/uL (0.5-4.7); ABSOLUTE NEUT (AUTO) 3.5 10^3/uL (1.7-8.2); BASOPHILS % (AUTO) 0.5 % (0-2); EOSINOPHILS % (AUTO) 0.9 % (0-6); HEMATOCRIT 38.9 % (36.0-47.0); LYMPHOCYTES % (AUTO) 22.4 % (13-45); MEAN CORPUSCULAR HGB CONC 33.6 g/dL (32.0-36.0); MEAN CORPUSCULAR VOLUME 92 fl (80-97); PLATELET COUNT 192 10^3/uL (150-450); RED BLOOD COUNT 4.22 10^6/uL (3.72-5.28); RED CELL DISTRIBUTION WIDTH 13.8 % (11.5-14.0); SEGMENTED NEUTROPHILS % (AUTO) 71.2 % (42-78); WHITE BLOOD COUNT 4.9 10^3/uL (4.0-10.5)
[2019-09-08 17:29] LABS: ALBUMIN 3.9 g/dL (3.5-5.0); ALKALINE PHOSPHATASE 59 U/L (38-126); ANION GAP 10 (5-19); ASPARTATE AMINO TRANSFERASE 26 U/L (14-36); BILIRUBIN,DIRECT 0.2 mg/dL (0.0-0.4); BILIRUBIN,TOTAL 0.3 mg/dL (0.2-1.3); BLOOD UREA NITROGEN 22 mg/dL (7-20); CARBON DIOXIDE 29 mmol/L (22-30); CHLORIDE 103 mmol/L (98-107); GLUCOSE 89 mg/dL (75-110); POTASSIUM 4.8 mmol/L (3.6-5.0)
[2019-09-08] MEDS ORDERED: CEPHALEXIN 500 MG CAPSULE PO ONE (17:55)
[2019-09-08] MEDS ORDERED: LIDOCAINE 1% INJ-PF (10 MG/ML) 30 ML SDV INJ ONE (17:55)
--- NOTE | 2019-09-08 18:00 | ER Document Report ---
ED GI/ - General Chief Complaint: Urinary Problem Stated Complaint: ABDOMINAL PAIN, BURNING WITH URINATION Time Seen by Provider: 09/08/19 16:18 Primary Care Provider: SUZETTE LOVING MD [Primary Care Provider] - Follow up as needed Mode of Arrival: Ambulatory Notes: HPI: 59-year-old female who presents with 2 separate complaints. She states for 4 days she has had some dysuria described as burning with urination. She denies any fevers, back pain, or vomiting. She states some mild suprapubic pain with urination. History of urinary tract infections in the past. Extensive medical history otherwise as recorded. Patient also states for 2 days she has had a small lesion to the distal left index finger. She states she did have a paper cut to this region around a week ago. She states it is become swollen and tender. She again denies any fevers or vomiting. ROS: See HPI All other review of systems reviewed and otherwise negative Reviewed vital signs and nursing note as charted by RN. PHYSICAL EXAM: CONSTITUTIONAL: Alert and oriented and responds appropriately to questions. Well-appearing; well-nourished HEAD: Normocephalic; atraumatic CARD: Regular rate and rhythm; no murmurs; symmetric distal pulses RESP: Normal chest excursion without splinting or tachypnea; breath sounds clear and equal bilaterally ABD/GI: Normal bowel sounds; non-distended; soft, non-tender currently to deep palpation of all 4 quadrants of the abdomen; no abdominal bruits or palpable masses BACK: The back appears normal and is non-tender to palpation EXT: Patient has a swollen tender slightly fluctuant lesion to the lateral aspect of the fat pad of the distal middle finger SKIN: No acute lesions noted NEURO: CN 2-12 intact; 5/5 bilateral upper and lower extremity strength with sensation intact to light touch PSYCH: The patient's mood and manner are appropriate. Grooming and personal hygiene are appropriate. TRAVEL OUTSIDE OF THE [place] IN LAST 30 DAYS: No - Related Data Allergies/Adverse Reactions: bee venom protein (honey bee) Allergy (Severe, Verified 05/29/19 16:43) brompheniramine maleate [From Lodrane] Allergy (Severe, Verified 05/29/19 16:43) homatropine [Homatropine] Allergy (Severe, Verified 05/29/19 16:43) hydrocodone [Hydrocodone] Allergy (Severe, Verified 05/29/19 16:43) ketorolac tromethamine [From Toradol] Allergy (Severe, Verified 05/29/19 16:43) phenytoin sodium [From Dilantin] Allergy (Severe, Verified 05/29/19 16:43) pseudoephedrine HCl [From Lodrane] Allergy (Severe, Verified 05/29/19 16:43) Sulfa (Sulfonamide Antibiotics) Allergy (Severe, Verified 05/29/19 16:43) trimethoprim [From Septra] Allergy (Severe, Verified 05/29/19 16:43) ant bites Allergy (Severe, Uncoded 05/29/19 16:43) Past Medical History - General Information source: Patient - Social History Smoking Status: Never Smoker Chew tobacco use (# tins/day): No Frequency of alcohol use: None Drug Abuse: None Family History: Reviewed & Not Pertinent, CAD, COPD, CVA, Hypertension, Ma lignancy. denies: DM Patient has suicidal ideation: No Patient has homicidal ideation: No - Past Medical History Cardiac Medical History: Reports: Hx Congestive Heart Failure, Hx Hypercholesterolemia, Hx Hypertension Denies: Hx Coronary Artery Disease, Hx Heart Attack, Hx Peripheral Vascular Disease Pulmonary Medical History: Reports: Hx Asthma Denies: Hx COPD, Hx Pneumonia, Hx Respiratory Failure, Hx Tuberculosis Neurological Medical History: Reports: Hx Seizures Endocrine Medical History: Denies: Hx Diabetes Mellitus Type 1, Hx Diabetes Mellitus Type 2, Hx Hyperthyroidism, Hx Hypothyroidism Renal/ Medical History: Denies: Hx Peritoneal Dialysis GI Medical History: Reports: Hx Gastroesophageal Reflux Disease. Denies: Hx Cirrhosis, Hx Crohn's Disease, Hx Hepatitis, Hx Ulcerative Colitis Musculoskeletal Medical History: Reports Hx Arthritis, Reports Hx Fibromyalgia Skin Medical History: Denies Hx Eczema, Denies Hx Psoriasis Psychiatric Medical History: Reports: Hx Depression Infectious Medical History: Denies: Hx Hepatitis Past Surgical History: Reports: Hx Abdominal Surgery - COLON BIOPSY, Hx Breast Surgery - BIOPSY, Hx Cardiac Catheterization, Hx Gynecologic Surgery - ENDOMETRIOSIS, Hx Hysterectomy, Hx Kidney (Renal Surgery), Hx Orthopedic Surgery - Carpal tunnel surgery, Other - Cervical biopsy, kidney biopsy, bilateral breast biopsies, retinal surgery. - Immunizations Immunizations up to date: Yes Hx Diphtheria, Pertussis, Tetanus Vaccination: No - LAST 2009 Hx Pneumococcal Vaccination: 07/13/12 Physical Exam - Vital signs Vitals: Temp Pulse Resp BP Pulse Ox 98.4 F 82 18 155/64 H 98 09/08/19 15:44 09/08/19 15:44 09/08/19 15:44 09/08/19 15:44 09/08/19 15:44 Course - Re-evaluation Re-evalutation: Given the above history and physical, we will obtain basic labs, electrolytes, urine analysis, and reassess. On repeat abdominal serial examinations the patient has no abdominal tenderness. She is in agreement that her abdomen is not painful at this time. 09/08/19 17:59 Labs as recorded. Given the patient's symptomatology I believe that the patient may be suffering from urinary tract infection. Patient has no allergies to Keflex. Given the finger, I am concerned about a possible felon. I will perform a digital block with an incision and drainage. Patient still has no abdominal tenderness on repeat exam. Vital signs as recorded. Patient has a history of an elevated creatinine according to patient's report and previous lab values. Creatinine is actually improved from those lab values. Patient has had no vomiting. - Vital Signs Vital signs: Temp Pulse Resp BP Pulse Ox 98.4 F 82 18 155/64 H 98 09/08/19 15:44 09/08/19 15:44 09/08/19 15:44 09/08/19 15:44 09/08/19 15:44 - Laboratory Result Diagrams: 09/08/19 16:56 09/08/19 16:56 Laboratory results interpreted by me: 09/08/19 09/08/19 15:47 16:56 BUN 22 H Creatinine 1.63 H Est GFR ( Amer) 39 L Est GFR (MDRD) Non-Af 32 L Urine Protein 100 H Ur Leukocyte Esterase TRACE H Urine Ascorbic Acid 40 H Procedures - Incision and Drainage Left Finger Time completed: 19:01 Anesthetic type: 1% Lidocaine Blade size: 11 I&D procedure: Chlorprep applied Incision Method: Incision made by scalpel Amount/type of drainage: minimal Notes: 09/08/19 19:01 I did perform a digital block using lidocaine without epinephrine with good anesthesia uptake. Discharge - Discharge Clinical Impression: Felon of finger UTI (urinary tract infection) Qualifiers: Urinary tract infection type: site unspecified Hematuria presence: without hematuria Qualified Code(s): N39.0 - Urinary tract infection, site not specified Condition: Good Disposition: HOME, SELF-CARE Additional Instructions: Come back immediately with any fevers, vomiting, pain, swelling or redness of t he finger, or any other acute problems. Please make sure that you follow-up with the primary provider for reassessment of the urine culture and finger as discussed. Prescriptions: Cephalexin Monohydrate [Keflex 500 mg Capsule] 500 mg PO TID 7 Days #21 capsule Referrals: SUZETTE LOVING MD [Primary Care Provider] - Follow up as needed
[2019-09-08 19:31] VITALS: BP 150/79
== END 2019-09-08 19:35 | disposition home or self-care (01) ==
LOC: ER 15:31
PROC: 0H9QXZZ Drainage of Finger Nail, External Approach (ICD-10-PCS; principal; 2019-09-08)
DX: L03.012 Cellulitis of left finger (principal); N39.0 Urinary tract infection, site not specified; R30.0 Dysuria; R10.30 Lower abdominal pain, unspecified; L98.9 Disorder of the skin and subcutaneous tissue, unspecified; I50.9 Heart failure, unspecified; I11.0 Hypertensive heart disease with heart failure; J45.909 Unspecified asthma, uncomplicated
CPT/HCPCS: 99283; 36415; 87086; 85025; 87088; 80053; 81001; 87186; 10060; A9270; J3490

== ENCOUNTER 2019-11-15 11:03 | Emergency (ER) | payer MEDICARE, MEDICAID ==
--- NOTE | 2019-11-15 11:29 | ER Document Report ---
ED Medical Screen (RME) - General Chief Complaint: Urinary Problem Stated Complaint: URINARY PROBLEM/EYE PAIN Time Seen by Provider: 11/15/19 11:21 Primary Care Provider: SUZETTE LOVING MD [Primary Care Provider] - Follow up as needed Notes: HPI: 59-year-old female with history of lupus, fibromyalgia, ITP, TTP, CVA with right-sided residual weakness presenting to the emergency department complaining of 4 to 5 days of pain through the left lower back and left hip region with standing or walking. Also reports a foul smell or strong odor to her urine and she is concerned about a bladder infection, this is been ongoing over the last 4 days. No dysuria. No fever. Denies nausea vomiting. Patient states that she also woke up today with blurring of vision "as if there is a shadow over the eye" in the right eye. She believes the eye is red and is concerned about pinkeye. She denies ocular pain. She denies upper respiratory symptoms but states 1 of her family members has had upper respiratory symptoms around her recently I have greeted and performed a rapid initial assessment of this patient. A comprehensive ED assessment and evaluation of the patient, analysis of test results and completion of the medical decision making process will be conducted by additional ED providers PHYSICAL EXAMINATION: GENERAL: Well-appearing, well-nourished and in no acute distress. HEAD: Atraumatic, normocephalic. EYES: sclera anicteric, conjunctiva minimally injected right eye. ENT: Moist mucous membranes. NECK: Normal range of motion LUNGS: Normal work of breathing HEART: 2+ radial pulses bilaterally ABD: limited by positioning for exam in triage. EXTREMITIES: no pitting or edema. No cyanosis. Back: Mild tenderness in the left lower back into the gluteal region on palpation NEUROLOGICAL: Moves all extremities spontaneously and on command. PSYCH: Normal mood, normal affect. SKIN: Warm, Dry, normal turgor, no rashes or lesions noted. TRAVEL OUTSIDE OF THE [place] IN LAST 30 DAYS: No - Related Data Allergies/Adverse Reactions: bee venom protein (honey bee) Allergy (Severe, Verified 11/15/19 11:18) brompheniramine maleate [From Lodrane] Allergy (Severe, Verified 11/15/19 11:18) homatropine [Homatropine] Allergy (Severe, Verified 11/15/19 11:18) hydrocodone [Hydrocodone] Allergy (Severe, Verified 11/15/19 11:18) ketorolac tromethamine [From Toradol] Allergy (Severe, Verified 11/15/19 11:18) phenytoin sodium [From Dilantin] Allergy (Severe, Verified 11/15/19 11:18) pseudoephedrine HCl [From Lodrane] Allergy (Severe, Verified 11/15/19 11:18) Sulfa (Sulfonamide Antibiotics) Allergy (Severe, Verified 11/15/19 11:18) trimethoprim [From Septra] Allergy (Severe, Verified 11/15/19 11:18) ant bites Allergy (Severe, Uncoded 11/15/19 11:18) Past Medical History - Past Medical History Cardiac Medical History: Reports: Hx Congestive Heart Failure, Hx Hypercholesterolemia, Hx Hypertension Denies: Hx Coronary Artery Disease, Hx Heart Attack, Hx Peripheral Vascular Disease Pulmonary Medical History: Reports: Hx Asthma Denies: Hx COPD, Hx Pneumonia, Hx Respiratory Failure, Hx Tuberculosis Neurological Medical History: Reports: Hx Seizures Endocrine Medical History: Denies: Hx Diabetes Mellitus Type 1, Hx Diabetes Mellitus Type 2, Hx Hyperthyroidism, Hx Hypothyroidism Renal/ Medical History: Denies: Hx Peritoneal Dialysis GI Medical History: Reports: Hx Gastroesophageal Reflux Disease. Denies: Hx Cirrhosis, Hx Crohn's Disease, Hx Hepatitis, Hx Ulcerative Colitis Musculoskeltal Medical History: Reports Hx Arthritis, Reports Hx Fibromyalgia Skin Medical History: Denies Hx Eczema, Denies Hx Psoriasis Psychiatric Medical History: Reports: Hx Depression Infectious Medical History: Denies: Hx Hepatitis Past Surgical History: Reports: Hx Abdominal Surgery - COLON BIOPSY, Hx Breast Surgery - BIOPSY, Hx Cardiac Catheterization, Hx Gynecologic Surgery - ENDOMETRIOSIS, Hx Hysterectomy, Hx Kidney (Renal Surgery), Hx Orthopedic Surgery - Carpal tunnel surgery, Other - Cervical biopsy, kidney biopsy, bilateral breast biopsies, retinal surgery. - Immunizations Immunizations up to date: Yes Hx Diphtheria, Pertussis, Tetanus Vaccination: No - LAST 2009 Physical Exam - Vital signs Vitals: Temp Pulse Resp BP Pulse Ox 98 F 82 18 171/102 H 96 11/15/19 11:18 11/15/19 11:18 11/15/19 11:18 11/15/19 11:18 11/15/19 11:18 Course - Vital Signs Vital signs: Temp Pulse Resp BP Pulse Ox 98 F 82 18 171/102 H 96 11/15/19 11:18 11/15/19 11:18 11/15/19 11:18 11/15/19 11:18 11/15/19 11:18 Doctor's Discharge - Discharge Referrals: SUZETTE LOVING MD [Primary Care Provider] - Follow up as needed
[2019-11-15 11:49] LABS: APPEARANCE,URINE SLIGHTLY-CLOUDY; BILIRUBIN,URINE NEGATIVE (NEGATIVE); COLOR,URINE YELLOW; GLUCOSE, URINE NEGATIVE (NEGATIVE); KETONES,URINE NEGATIVE (NEGATIVE); LEUKOCYTE ESTERASE,URINE MODERATE (NEGATIVE); NITRITE,URINE POSITIVE (NEGATIVE); PROTEIN,URINE 100 mg/dL (NEGATIVE); URINE SPECIFIC GRAVITY 1.017; UROBILINOGEN,URINE NEGATIVE mg/dL (<2.0)
--- NOTE | 2019-11-15 12:13 | RADIOLOGY REPORT (SQ) ---
EXAM DESCRIPTION: HIP LEFT AP/LATERAL COMPLETED DATE/TIME: 11/15/2019 11:53 am REASON FOR STUDY: hip pain COMPARISON: None. NUMBER OF VIEWS: Two views. TECHNIQUE: AP pelvis and additional frog-leg view of the left hip. LIMITATIONS: None. FINDINGS: MINERALIZATION: Normal. LEFT HIP: No fracture or dislocation. No worrisome bone lesions. No contour deformity. No joint spa ce narrowing. RIGHT HIP: No fracture or dislocation. No worrisome bone lesions. PUBIS AND ISCHIUM: No fracture. PELVIS: No fracture. SACRUM: No fracture or dislocation. No worrisome bone lesions. LOWER LUMBAR SPINE: No fracture or dislocation. No worrisome bone lesions. No significant disc disea se. SOFT TISSUES: No findings. OTHER: No other significant finding. IMPRESSION: NEGATIVE STUDY OF THE LEFT HIP AND PELVIS. NO EXPLANATION FOR PAIN. TECHNICAL DOCUMENTATION: JOB ID: [id number] 2010 [employer]- All Rights Reserved Reading location - IP/workstation name: [email or web address]
--- NOTE | 2019-11-15 13:49 | RADIOLOGY REPORT (SQ) ---
EXAM DESCRIPTION: L SPINE WHOLE COMPLETED DATE/TIME: 11/15/2019 1:16 pm REASON FOR STUDY: back pain COMPARISON: 2009 NUMBER OF VIEWS: Five views including obliques. TECHNIQUE: AP, lateral, oblique, and sacral radiographic images acquired of the lumbar spine. LIMITATIONS: None. FINDINGS: MINERALIZATION: Osteopenia. SEGMENTATION: Normal. No transitional anatomy. ALIGNMENT: Minimal grade 1 listhesis at L4-5. Very slight convex right scoliotic curve. VERTEBRAE: Maintained height. No fracture or worrisome bone lesion. DISCS: Multilevel disc space narrowing with osteophytes. POSTERIOR ELEMENTS: Pedicles and facets are intact. No pars defect or posterior arch defects. Facet arthropathy is present. HARDWARE: None in the spine. PARASPINAL SOFT TISSUES: Moderate stool retention. PELVIS: Intact as visualized. No fractures or worrisome bone lesions. SI joints intact. OTHER: No other significant finding. IMPRESSION: SPONDYLOSIS WITHOUT BONE LESION OR FRACTURE. TECHNICAL DOCUMENTATION: JOB ID: [id number] 2010 [employer]- All Rights Reserved Reading location - IP/workstation name: [email or web address]
[2019-11-15] MEDS ORDERED: TETRACAINE HCL 0.5% OPH SOLN 4 ML ONE (13:52)
--- NOTE | 2019-11-15 14:18 | ER Document Report ---
ED General - General Chief Complaint: Urinary Problem Stated Complaint: URINARY PROBLEM/EYE PAIN Time Seen by Provider: 11/15/19 11:21 Primary Care Provider: SUZETTE LOVING MD [Primary Care Provider] - Follow up as needed TRAVEL OUTSIDE OF THE [place] IN LAST 30 DAYS: No - HPI Notes: Patient is a 59-year-old female with a history of lupus, fibromyalgia, ITP, TTP, CVA with right-sided residual weakness presents for multiple concerns. Patient is primarily here for her left hip that is been bothering her for the bout the past week. Patient states that it is towards her left buttock area and does radiate down into her leg intermittently. Pressure to the area as well as walking and twisting do make the pain worse. Patient states that she has had issues with her back chronically otherwise. Patient has also noticed a foul smell to her urine, but is otherwise urinating normally. She has not had any vaginal bleeding, odor, or discharge. No history of spinal abscess, diabetes, IV drug abuse. Patient also states that she had a little puffiness to her lower eyelid this morning and does have a grandson at home and wants to make sure that she would not be contagious with something like pinkeye. Patient states that she had a little blurriness with the vision with a "film" over the eye that has since significantly improved on its own. She does not have any eye pain. She does not have any jaw claudication. She has not had any headaches. Denies any fever, head injury, neck pain, changes in speech/mentation/hearing, URI, sore throat, chest pain, palpitations, syncope, cough, shortness of breath, wheeze, dyspnea, abdominal pain, nausea/vomiting/diarrhea, urinary retention, dysuria, hematuria, loss of control of bowel or bladder, saddle anesthesia, muscle p aralysis, or rash. HPI: 59-year-old female with history of lupus, fibromyalgia, ITP, TTP, CVA with right-sided residual weakness presenting to the emergency department complaining of 4 to 5 days of pain through the left lower back and left hip region with standing or walking. Also reports a foul smell or strong odor to her urine and she is concerned about a bladder infection, this is been ongoing over the last 4 days. No dysuria. No fever. Denies nausea vomiting. Patient states that she also woke up today with blurring of vision "as if there is a shadow over the eye" in the right eye. She believes the eye is red and is concerned about pinkeye. She denies ocular pain. She denies upper respiratory symptoms but states 1 of her family members has had upper respiratory symptoms around her recently - Related Data Allergies/Adverse Reactions: bee venom protein (honey bee) Allergy (Severe, Verified 11/15/19 11:18) brompheniramine maleate [From Lodrane] Allergy (Severe, Verified 11/15/19 11:18) homatropine [Homatropine] Allergy (Severe, Verified 11/15/19 11:18) hydrocodone [Hydrocodone] Allergy (Severe, Verified 11/15/19 11:18) ketorolac tromethamine [From Toradol] Allergy (Severe, Verified 11/15/19 11:18) phenytoin sodium [From Dilantin] Allergy (Severe, Verified 11/15/19 11:18) pseudoephedrine HCl [From Lodrane] Allergy (Severe, Verified 11/15/19 11:18) Sulfa (Sulfonamide Antibiotics) Allergy (Severe, Verified 11/15/19 11:18) trimethoprim [From Septra] Allergy (Severe, Verified 11/15/19 11:18) ant bites Allergy (Severe, Uncoded 11/15/19 11:18) Past Medical History - Social History Smoking Status: Never Smoker Chew tobacco use (# tins/day): No Frequency of alcohol use: None Drug Abuse: None Family History: Reviewed & Not Pertinent, CAD, COPD, CVA, Hypertension, Malignancy. denies: DM Patient has suicidal ideation: No Patient has homicidal ideation: No - Past Medical History Cardiac Medical History: Reports: Hx Congestive Heart Failure, Hx Hypercholesterolemia, Hx Hypertension Denies: Hx Coronary Artery Disease, Hx Heart Attack, Hx Peripheral Vascular Disease Pulmonary Medical History: Reports: Hx Asthma Denies: Hx COPD, Hx Pneumonia, Hx Respiratory Failure, Hx Tuberculosis Neurological Medical History: Reports: Hx Seizures Endocrine Medical History: Denies: Hx Diabetes Mellitus Type 1, Hx Diabetes Mellitus Type 2, Hx Hyperthyroidism, Hx Hypothyroidism Renal/ Medical History: Denies: Hx Peritoneal Dialysis GI Medical History: Reports: Hx Gastroesophageal Reflux Disease. Denies: Hx Cirrhosis, Hx Crohn's Disease, Hx Hepatitis, Hx Ulcerative Colitis Musculoskeletal Medical History: Reports Hx Arthritis, Reports Hx Fibromyalgia Skin Medical History: Denies Hx Eczema, Denies Hx Psoriasis Psychiatric Medical History: Reports: Hx Depression Infectious Medical History: Denies: Hx Hepatitis Past Surgical History: Reports: Hx Abdominal Surgery - COLON BIOPSY, Hx Breast Surgery - BIOPSY, Hx Cardiac Catheterization, Hx Gynecologic Surgery - ENDOMETRIOSIS, Hx Hysterectomy, Hx Kidney (Renal Surgery), Hx Orthopedic Surgery - Carpal tunnel surgery, Other - Cervical biopsy, kidney biopsy, bilateral breast biopsies, retinal surgery. - Immunizations Immunizations up to date: Yes Hx Diphtheria, Pertussis, Tetanus Vaccination: No - LAST 2009 Hx Pneumococcal Vaccination: 07/13/12 Review of Systems - Review of Systems -: Yes All other systems reviewed and negative Physical Exam - Vital signs Vitals: Temp Pulse Resp BP Pulse Ox 98 F 82 18 171/102 H 96 11/15/19 11:18 11/15/19 11:18 11/15/19 11:18 11/15/19 11:18 11/15/19 11:18 - Notes Notes: PHYSICAL EXAMINATION: GENERAL: Well-appearing, well-nourished and in no acute distress. EYES: Pupils equal round and reactive to light, extraocular movements intact, sclera anicteric, conjunctiva left shows very mild episcleritis b/l w/o discharge or matting. Non-tender to palp of the globe and eye itself. No surrounding erythema or swelling noted. Visual acuity appropriate. Lid everted/wiped. Wood's lamp/flourescein: No abrasion, laceration, ulceration, or codie sign noted. No obvious foreign body appreciated. ENT: EAC clear b/l. TM's intact b/l without erythema, fluid, or perforation. Nares patent and without discharge. oropharynx clear without exudates. No tonsilar hypertrophy or erythema. Moist mucous membranes. No sinus tenderness. Uvula midline. No palatine shift. No airway compromise. No drooling or hoarseness. NECK: Normal range of motion, supple without lymphadenopathy. No rigidity/meningismus. LUNGS: Breath sounds clear to auscultation bilaterally and equal. No wheezes rales or rhonchi. HEART: Regular rate and rhythm without murmurs, rubs, gallops. ABDOMEN: Soft, nontender, nondistended abdomen. No guarding, no rebound. Normal bowel sounds present. No CVA tenderness bilaterally. No pulsatile mass Musculoskeletal: LE's b/l: FROM to passive/active. Strength 5+/5. No deficits noted. No bony tenderness of extremities. Back: FROM to passive/active. Strength 5+/5. No vertebral point tenderness, stepoffs, or deformities. No other bony tenderness, erythema, swelling, or ecchymosis. SLR negative b/l. reproducible tenderness to the left SI jt noted. No foot drop Extremities: No cyanosis, clubbing, or edema b/l. Peripheral pulses 2+. Capillary refill less than 2 seconds. NEUROLOGICAL: Normal speech, antalgic gait. Reflexes 2+ b/l. PSYCH: Normal mood, normal affect. SKIN: Warm, Dry, normal turgor, no rashes or lesions noted. - HEENT Visual acuity- Right eye: 20/50 Visual acuity- Left eye: 20/70 Visual acuity- Both eyes: 20/40-1 Corrective lenses worn: Yes - glasses Course - Re-evaluation Re-evalutation: 11/15/19 14:15 Patient is an afebrile, well-hydrated, 60-year-old female who presents to the emergency department with resolved right eye lower lid swelling/irritation, suspect benign at this time. She also presents with left buttock pain, suspect SI joint etiology with probable sciatica acute on chronic. Pt also has a UTI. Vitals are acceptable without significant tachycardia, tachypnea, or hypoxia. PE is otherwise unremarkable. Patient is nontoxic-appearing and is able to tolerate p.o. without difficulty. See UA/UC pending. XR's negative. No other labs or imaging warranted. Low suspicion for any retained corneal or lid foreign body, deep space infection including orbital cellulitis/abscess, acute glaucoma, penetrating globe injury, retinal detachment, sepsis, compartment syndrome, meningitis, fracture, expanding/ruptured AAA, cauda equina syndrome, epidural mass lesion/abscess, herniated disc causing severe spinal stenosis, acute abd, or other systemic infection at this time. pt to monitor symptoms and seek medical attention with acute changes. I will send home with a prescription for ciloxan, keflex, and robaxin. Conservative measures otherwise for symptoms with proper handwashing. Recheck with your PCM in 2-3 days. Schedule follow-up with ophthalmology. Return to the ED with any worsening/concerning symptoms otherwise as reviewed in discharge. Patient is in agreement. - Vital Signs Vital signs: Temp Pulse Resp BP Pulse Ox 98 F 82 18 171/102 H 96 11/15/19 11:18 11/15/19 11:18 11/15/19 11:18 11/15/19 11:18 11/15/19 11:18 - Laboratory Laboratory results interpreted by me: 11/15/19 11:30 Urine Protein 100 H Urine Blood SMALL H Urine Nitrite POSITIVE H Ur Leukocyte Esterase MODERATE H Procedures - Eye Procedure Right Eye Irrigated w/ Saline (ccs): 20 Alcaine Drops Administered: Yes - tetracaine Fluorescein applied: Right Discharge - Discharge Clinical Impression: Irritation of right eye, Left buttock pain, Acute UTI (urinary tract infection) Sciatica Qualifiers: Laterality: left Qualified Code(s): M54.32 - Sciatica, left side Condition: Stable Disposition: HOME, SELF-CARE Instructions: Cephalexin ([facility]), Urinary Tract Infection ([facility]), Muscle Relaxers ([facility]) Additional Instructions: Keep eyes clean Avoid scratching/touching eyes Wash hands regularly Use eye drops as directed Maintain adequate fluid intake Moist heat/cool compress, massage, stretches as reviewed tylenol as needed over the counter cold medication as needed for symptoms F/u: with your PCM in 2-3 days for a recheck Schedule consult with ophthalmology Consider consult with orthopedic/pain management/physical therapy Return to the ED with any worsening symptoms and/or development of fever, headache, changes in behavior/mentation/vision/speech, eye pain, worsening eye redness, redness around the eyes, purulent discharge, chest pain, palpitations, syncope, shortness of breath, trouble breathing, abdominal pain, n/v/d, blood in stool/urine, loss of control of bowel/bladder, urinary retention, muscle weakness/paralysis, saddle anesthesia, worsening numbness/tingling, or other worsening symptoms that are concerning to you. Prescriptions: Methocarbamol [Robaxin 750 mg Tablet] 750 mg PO QHS #6 tablet Ciprofloxacin HCl [Ciloxan 0.3% Oph Soln 2.5 ml] 1 - 2 drop OP Q2H #1 bottle Cephalexin Monohydrate [Keflex 500 mg Capsule] 500 mg PO TID #21 capsule Forms: Elevated Blood Pressure Referrals: SUZETTE LOVING MD [Primary Care Provider] - Follow up as needed EVER NAJERA MD [ACTIVE STAFF] - Follow up in 1 week [facility] [Provider Group] - Follow up as needed
[2019-11-15] MEDS ORDERED: TETRACAINE HCL 0.5% OPH SOLN 4 ML OD ONE (14:25)
[2019-11-15] MEDS ORDERED: TRAMADOL HCL 50 MG TABLET PO ONE (14:26)
[2019-11-15 15:07] VITALS: BP 167/88
== END 2019-11-15 15:07 | disposition home or self-care (01) ==
LOC: ER 11:03
DX: H15.103 Unspecified episcleritis, bilateral (principal); N39.0 Urinary tract infection, site not specified; M25.552 Pain in left hip; H53.8 Other visual disturbances; M54.5 Low back pain; I10 Essential (primary) hypertension; J45.909 Unspecified asthma, uncomplicated; Z91.030 Bee allergy status; Z91.038 Other insect allergy status; Z88.6 Allergy status to analgesic agent; Z88.5 Allergy status to narcotic agent; Z88.8 Allergy status to other drugs, medicaments and biological substances; Z88.2 Allergy status to sulfonamides; Z88.1 Allergy status to other antibiotic agents
CPT/HCPCS: 99283; 81001; 73502; 72110; A9270; J3490